=== PATIENT | female | born 1960 | race Caucasian/White ===

== ENCOUNTER → 2020-07-04 10:26 | Outpatient (CLI) | payer BC, SELFPAY ==
--- NOTE | ~2020-07-04 | MM_ITS ---
EXAMINATION: MM screening christine BI w canelo HISTORY: Screening mammogram TECHNIQUE: Craniocaudal and mediolateral oblique 3-D tomosynthesis images were obtained and synthetic 2-D images were generated. CAD analysis was submitted and interpreted. COMPARISON: 04/05/2019, 03/07/2018, 01/19/2017 bilateral digital screening mammogram examinations BREAST PARENCHYMAL COMPOSITION: There are scattered areas of fibroglandular density. FINDINGS: There is no evidence of suspicious mass, calcification, or architectural distortion to sugg est malignancy in either breast. There has been no suspicious interval change. IMPRESSION: 1. No mammographic evidence of malignancy. 2. Recommend routine screening mammography in one year. BI-RADS Category 1: Negative Reviewed, dictated and finalized at location A.
== END ==
PROVIDERS: Visit Provider Obstetrics & Gynecology Gynecology
DX: Z12.31 Encounter for screening mammogram for malignant neoplasm of breast (principal)
CPT/HCPCS: 77063; 77067

== ENCOUNTER 2020-12-17 07:30 | Outpatient (CLI) | payer BC, SELFPAY ==
--- NOTE | 2020-12-17 | EST_ITS ---
Patient Info Name: Brionna Vasquez Age: 60 years : 1960 Gender: Female Ht: 64 in Wt: 145 lbs BSA: 1.73 m2 Heart Rhythm: Bradycardia Exam Date: 12/17/2020 9:08 AM Exam Location: [facility] Stress Patient Status: Outpatient Admit Date: 12/17/2020 Staff Ordering Physician: Iker, Margarito MENEZES Attending Provider: Iker, Margarito MENEZES Exercise Technologist: Danielle Lerner RDCS Exercise Physician: Yakov Og MD Exam Type: CA stress test treadmill Study Info Indications R42 - Dizziness and giddiness A treadmill exercise stress test was performed. Summary 1. Sub maximal treadmill stress EKG study achieving 83% of age predicted maximum heart rate and 11.8 METS and 9:53 on Ronen Protocol. 2. Hypertensive at baseline with hypertensive blood pressure response. 3. Exercise capacity very good at >10 METS. 4. Greater than 1 mm horizontal and upsloping ST segment depression in leads II, III, aVF, V3-V5 at workload achieved suggestive of myocardial ischemia. 5. Occasional stress induced PVCs. 6. Blood pressure management as clinically appropriate. 7. Consider repeat alternative stress test with imaging to improve sensitivity and specificity for myocardial ischemia if clinically indicated. Recommendations * Blood pressure management as clinically appropriate. * Consider repeat alternative stress test with imaging to improve sensitivity and specificity for myocardial ischemia if clinically indicated. Protocol: Ronen Stress ECG Details Stage: REST Duration (min): 8 min : 41 sec Speed (mph): 0.0 Grade (%): 0 HR (bpm): 59 SBP (mmHg): 158 DBP (mmHg): 94 METS: --- Stage: REST Duration (min): 17 min : 52 sec Speed (mph): 0.0 Grade (%): 0 HR (bpm): 70 SBP (mmHg): 158 DBP (mmHg): 94 METS: --- Stage: STAGE 1 Duration (min): 1 min : 0 sec Speed (mph): 1.7 Grade (%): 10 HR (bpm): 82 SBP (mmHg): 158 DBP (mmHg): 94 METS: --- Stage: STAGE 1 Duration (min): 2 min : 0 sec Speed (mph): 1.7 Grade (%): 10 HR (bpm): 90 SBP (mmHg): 158 DBP (mmHg): 94 METS: --- Stage: STAGE 1 Duration (min): 3 min : 0 sec Speed (mph): 1.7 Grade (%): 10 HR (bpm): 91 SBP (mmHg): 176 DBP (mmHg): 90 METS: --- Stage: STAGE 2 Duration (min): 1 min : 0 sec Speed (mph): 2.5 Grade (%): 12 HR (bpm): 99 SBP (mmHg): 176 DBP (mmHg): 90 METS: --- Stage: STAGE 2 Duration (min): 2 min : 0 sec Speed (mph): 2.5 Grade (%): 12 HR (bpm): 106 SBP (mmHg): 200 DBP (mmHg): 92 METS: --- Stage: STAGE 2 Duration (min): 3 min : 0 sec Speed (mph): 2.5 Grade (%): 12 HR (bpm): 108 SBP (mmHg): 200 DBP (mmHg): 92 METS: --- Stage: STAGE 3 Duration (min): 1 min : 0 sec Speed (mph): 3.4 Grade (%): 14 HR (bpm): 117 SBP (mmHg): 210 DBP (mmHg): 93 METS: --- Stage: STAGE 3 Duration (min): 2 min : 0 sec Speed (mph): 3.4 Grade (%): 14 HR (bpm): 122 SBP (mmHg): 210 DBP (mmHg):
--- NOTE | 2020-12-17 | ECHO_ITS ---
Patient Info Name: Brionna Vasquez Age: 60 years : 1960 Gender: Female Ht: 64 in Wt: 145 lbs BSA: 1.73 m2 HR: 57 bpm BP: 169 / 105 mmHg Heart Rhythm: Bradycardia Technical Quality: Good Exam Date: 12/17/2020 8:11 AM Exam Location: [facility] Patient Status: Outpatient Admit Date: 12/17/2020 Staff Ordering Physician: IkerMargarito MD Merchandise Supervisor: Case Taylor, RDCS, RT Attending Provider: IkerMargarito MD Exam Type: CA echo doppler color flow Study Info Indications R42 - Dizziness and giddiness Complete two-dimensional, color flow and Doppler transthoracic echocardiogram is performed. Strain analysis performed. Summary 1. Complete two-dimensional, color flow and Doppler transthoracic echocardiogram is performed. 2. Normal LV size, mild LVH; normal LV systolic and diastolic function, ejection fraction 55-60%. G LS-24%. No significant valvular abnormality. Unable to assess RVSP due to inadequate TR jet velocity. Sinus bradycardia. Left Ventricle Left ventricular chamber dimension is normal. Left ventricular systolic function is normal, estimated at 55-60%. There is mildly increased left ventricular wall thickness. The left ventricular diastolic function is normal. Right Ventricle Right ventricular chamber dimension is normal. Right ventricular systolic function is normal. Left Atria Left atrial chamber dimension is normal. Right Atria Right atrial chamber dimension is normal. Aortic Valve The aortic valve is normal. There is no aortic valve stenosis. Pulmonic Valve The pulmonic valve is normal. Mitral Valve The mitral valve has normal leaflets. There is no mitral valve regurgitation. Tricuspid Valve The tricuspid valve leaflets are normal. There is trace tricuspid valve regurgitation. Pericardium/Pleural The pericardium appears epicardial fat pad. Aorta The prox ascending aorta size is normal. Left Ventricular Outflow Tract Name Value Normal LVOT 2D LVOT Diameter 2.0 cm LVOT Doppler LVOT Peak Gradient 3 mmHg LVOT Mean Gradient 2 mmHg LVOT VTI 20 cm LVOT VTI/AV VTI Ratio 0.7 LVOT Stroke Volume 61 ml LVOT CO 3.6 l/min LVOT CI 2.1 l/min/m2 Mitral Valve Name Value Normal MV Doppler MV Decel Buchanan 248 cm/s2 MV PHT 69 ms MV Area (PHT) 3.2 cm2 4.0-5.0 MV Diastolic Function MV E Peak Velocity 59 cm/s MV A Peak Velocity 56 cm/s MV E/A
== END 2020-12-17 07:31 | disposition home or self-care (01) ==
PROVIDERS: PCP Internal Medicine; Visit Provider Internal Medicine
DX: R55 Syncope and collapse (principal)
CPT/HCPCS: 93017; 93306

== ENCOUNTER → 2021-10-16 10:56 | Outpatient (CLI) | payer BC, SELFPAY ==
--- NOTE | ~2021-10-16 | MM_ITS ---
EXAMINATION: MM screening christine BI w canelo HISTORY: Screening mammogram TECHNIQUE: Craniocaudal and mediolateral oblique 3-D tomosynthesis images were obtained and synthetic 2-D images were generated. CAD analysis was submitted and interpreted. COMPARISON: 07/04/2020, 04/05/2019, 03/07/2018 bilateral screening mammogram examinations BREAST PARENCHYMAL COMPOSITION: There are scattered areas of fibroglandular density. FINDINGS: There is no evidence of suspicious mass, calcification, or architectural distortion to sugg est malignancy in either breast. There has been no suspicious interval change. IMPRESSION: 1. No mammographic evidence of malignancy. 2. Recommend routine screening mammography in one year. BI-RADS Category 1: Negative Reviewed, dictated and finalized at location A. 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
== END ==
PROVIDERS: Visit Provider Obstetrics & Gynecology Gynecology
DX: Z12.31 Encounter for screening mammogram for malignant neoplasm of breast (principal)
CPT/HCPCS: 77063; 77067

== ENCOUNTER → 2022-08-28 12:15 | Outpatient (CLI) | payer BC, SELFPAY ==
--- NOTE | ~2022-08-28 | DEXA_ITS ---
Bone Density Report Name: NGOZI UREÑA V Age: 62 Sex: Female Ethnicity: White Date of : 1960 Indication: postmenopausal; screening for osteoporosis; prior fracture; Referring Provider: RAQUEL GARVIN Study: Bone densitometry was performed. Exam Date: August 28, 2022 Accession number: [id number] Bone Density: Region BMD T-score Z-score Classification AP Spine (L1, L4) 1.022 -0.1 1.4 Normal Femoral Neck (Left) 0.757 -0.8 0.6 Normal Total Hip (Left) 0.901 -0.3 0.7 Normal Femoral Neck (Right) 0.810 -0.4 1.0 Normal Total Hip (Right) 0.893 -0.4 0.7 Normal Total Hip Mean 0.897 -0.4 0.7 Normal World Health Organization criteria for BMD impression classify patients as: Normal (T-score at or above -1.0), Osteopenia (T-score between -1.0 and -2.5), or Osteoporosis (T-score at or below -2.5). 10-year Fracture Risk: FRAX not reported because: All T-scores for Spine Total, Hip Total, Femoral Neck at or above -1.0 Previous Exams: Region Exam Age BMD T-score BMD Change BMD Change Date g/cm2 vs Baseline vs Previous AP Spine(L1, L4) 08/28/2022 62 1.022 -0.1 -0.036* -0.036* 03/07/2018 57 1.059 0.2 Total Hip(Left) 08/28/2022 62 0.901 -0.3 -0.042* -0.042* 03/07/2018 57 0.944 0.0 Total Hip(Right) 08/28/2022 62 0.893 -0.4 -0.072* -0.072* 03/07/2018 57 0.966 0.2 *Denotes significance at 95% confidence level, LSC for AP Spine = 0.022 g/cm2, LSC for Total Hip = 0.027 g/cm2 Clinical Information Provided by Patient: Has had a low trauma fracture Patient maximum height was 64 Menopause Age: 51 Drinks caffeinated beverages Onset of menses at age 10.5 Number of children 1 Impression: The patient has normal bone mass. The patient has risk factors, including: previous fracture. The BMD for the AP Spine(L1, L4) decreased, changing by -0.036 since the last DXA exam. The BMD for the Total Hip(Left) decreased, changing by -0.042 since the last DXA exam. The BMD for the Total Hip(Right) decreased, changing by -0.072 since the last DXA exam. Discussion: BONE DENSITY IS ABOVE THE MINIMUM DESIRABLE LEVEL AT ALL SKELETAL SITES TESTED. This patient?s bone mineral density is above the minimum desirable level (T-score -1.0 or better) at all sites measured. The patient should follow a healthful lifestyle (good nutrition with adequate calcium and vitamin D, and appropriate weight-bearing exercise).
== END ==
PROVIDERS: PCP Internal Medicine; Visit Provider Obstetrics & Gynecology Gynecology
DX: Z78.0 Asymptomatic menopausal state (principal)
CPT/HCPCS: 77080

== ENCOUNTER 2022-10-04 00:51 | Observation (INO) | payer BC, SELFPAY ==
[2022-10-04] VITALS (13 sets, daily range): BP systolic 112–187; BP diastolic 63–98; PULSE 42–69; RESP 16–20; TEMP 36.4–36.7; O2SAT 95–100; BMI 28.9; BMI 28.8
--- NOTE | ~2022-10-04 | CT_ITS ---
EXAMINATION: CT brain wo con DATE: 10/04/2022 01:59 INDICATION: Syncope TECHNIQUE: Computed tomography (CT) of the head was performed without intravenous contrast. Sagittal and coronal reconstructions were performed. The mA was adjusted according to patient size. Iterative reconstruction technique was employed. The dose-length product was 1210.67 mGy-cm. COMPARISON: None FINDINGS: No acute intracranial hemorrhage, acute infarction or abnormal extra axial fluid collection. There is mild scattered white matter hypoattenuation consistent with chronic small vessel ischemic disease. S ymmetric mild increased prominence of the sulci consistent with mild age-appropriate diffuse cerebral volume loss. Ventricles are normal and symmetric. Small calcified extra-axial nodule along the left side of the tentorium which could represent heterotopic dural ossification or a small meningioma. No other abnormal masses identified. The orbits, paranasal sinuses and mastoid air cells are normal. IMPRESSION: 1. No acute intracranial process. 2. Small calcified nodule along the left side of the tentorium which could represent dural heterotopi c ossification or a small meningioma. 3. Age-related changes including mild diffuse volume loss and mild scattered white matter hypoattenua tion consistent with chronic small vessel ischemic disease. Reviewed, dictated and finalized at location A. 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 No acute intracranial process. 2. Small calcified nodule along the left side of the tentorium which could repr esent dural heterotopic ossification or a small meningioma. 3. Age-related changes including mild diffuse volume loss and mild scattered wh ite matter hypoattenuation consistent with chronic small vessel ischemic diseas e.
--- NOTE | ~2022-10-04 | XR_ITS ---
EXAMINATION: XR chest 1V portable DATE: 10/04/2022 03:33 INDICATION: Mid to right-sided chest pain TECHNIQUE: frontal view of the chest was obtained. COMPARISON: None FINDINGS: The lungs are clear with no focal airspace opacities, pulmonary edema, pleural effusion or pneumothor ax. The cardiomediastinal silhouette is normal. Visualized bones and soft tissues are unremarkable. IMPRESSION: 1. No acute cardiopulmonary disease. Reviewed, dictated and finalized at location A. LEY COLLECTOR
--- NOTE | 2022-10-04 01:01 | ECG_ITS ---
Measurements Intervals [place] Rate: 56 P: 55 MI: 210 QRS: 2 QRSD: 90 T: 35 QT: 417 QTc: 402 Interpretive Statements SINUS BRADYCARDIA WITH FIRST DEGREE AV BLOCK MISSING LEAD V1 LOW QRS VOLTAGE IN PRECORDIAL LEADS BASELINE ARTIFACT- I, II, III BORDERLINE ECG NO PREVIOUS ECG AVAILABLE FOR COMPARISON Electronically Signed On 10-04-2022 7:03:03 FACTORY EXPERT by Terry Kessler D.O.
[2022-10-04 01:08] LABS: Basophils Absolute Auto 0.1 K/mm3 (0.0-0.1); Basophils Percent Auto 0.7 % (0.2-1.2); Eosinophils Absolute Auto 0.2 K/mm3 (0-0.3); Eosinophils Percent Auto 2.1 % (0-4.4); Hematocrit 39.7 % (37.0-47.0); Hemoglobin 13.3 g/dL (12.0-15.0); Immature Granulocyte Absolute 0.02 K/mm3 (0.00-0.031); Immature Granulocyte Percent A 0.3 % (0-0.5); Lymphocytes Absolute Auto 3.11 K/mm3 (0.9-3.2); Lymphocytes Percent Auto 40.9 % (18.3-44.2); Mean Corpuscular HGB Conc 33.5 g/dl (32-36); Mean Corpuscular Hemoglobin 30.9 pg (26-34); Mean Corpuscular Volume 92.1 fl (80-100); Mean Platelet Volume 11.2 fl (7.4-10.4); Monocytes Absolute Auto 0.6 K/mm3 (0.1-0.6); Monocytes Percent Auto 7.9 % (2.6-8.5); Neutrophils Absolute Auto 3.7 K/mm3 (1.3-6.7); Neutrophils Percent Auto 48.1 % (45.5-73.1); Platelet Count Result 234 k/mm3 (150-375); Red Blood Count 4.31 M/mm3 (4.2-5.4); Red Cell Distribution Width 12.7 % (11.5-14.5); White Blood Count 7.6 K/mm3 (4.5-10.0)
[2022-10-04 01:18] LABS: Alanine Aminotransferase 38 U/L (6-35); Albumin Level 4.5 g/dL (3.5-5.1); Alkaline Phosphatase 61 U/L (38-126); Anion Gap 9 mmol/L (8-16); Aspartate Amino Transferase 29 U/L (14-36); Bilirubin,Total 0.3 mg/dL (0.2-1.3); Blood Urea Nitrogen 19 mg/dL (7-17); Calcium 9.2 mg/dL (8.4-10.2); Carbon Dioxide 26 mmol/L (22-30); Chloride 105 mmol/L (98-107); Estimated CRCL calculation 55 ml/min; Estimated Glomerular Filt Rate > 60; Glucose 106 mg/dL (65-110); Lipase 166 U/L (23-300); Potassium 3.7 mmol/L (3.4-5.0); Sodium 140 mmol/L (137-145)
[2022-10-04 01:21] LABS: INR 0.9; Prothrombin Time 11.5 Seconds (11.1-14.7)
[2022-10-04 01:22] LABS: Partial Thromboplastin Time 29.3 SECONDS (22.3-36.8)
[2022-10-04 01:30] LABS: Troponin I 0.012 ng/mL (0.000-0.034)
--- NOTE | 2022-10-04 01:50 | ED.GENADULT ---
HPI - General Adult General Chief complaint: Chest Pain Stated complaint: chest pain Time Seen by Provider: 10/04/22 01:14 History of Present Illness HPI narrative: Patient 62-year-old female who presents the emergency department with chief complaint of chest pain. The patient reports much has been having episodes of pain in her chest patient states she seen cardiology and has had multiple tests done the patient states this evening she woke up had an episode of midsternal chest pain and had some twitching in her left middle finger. Patient states that she then had an episode where while she was having pain she became minimally responsive the patient then slowly regained consciousness. The patient denied facial droop but denied focal deficit reports no weakness in her arms or legs denies numbness or tingling after the episode. Related Data Home Medications Medication Instructions Recorded Confirmed atorvastatin 10 mg tablet 11/10/19 Allergies Allergy/AdvReac Type Severity Reaction Status Date / Time Sulfa (Sulfonamide Allergy Unknown Unknown Verified 06/12/20 13:19 Antibiotics) Review of Systems Review of Systems: A 10 system review of systems was completed on the patient and is negative except for what is stated in the HPI. Nursing and ancillary documentation was reviewed. [facility] Past Medical History Medical History Healthy female adult Surgical History Surgical History No history of previous surgery Family History Family History Other Family history of arthritis Family history of malignant neoplasm Hypertension Social History Social History Smoking status: Never smoker Alcohol intake: never Gender identity (if verbalized by the patient): Female Exam Narrative: GENERAL: Well-appearing, well-nourished, and in no acute distress. HEAD: Normocephalic, atraumatic. EYES: PERRLA and EOMI. ENT: Nares clear, no rhinorrhea or epistaxis. Mucous membranes moist. NECK: Supple. CHEST: Clear to auscultation. No respiratory distress. HEART: Regular rate and rhythm. No murmur heard. Normal peripheral pulses. ABDOMEN: Soft, nontender, nondistended, normal active bowel sounds. EXTREMITIES: Normal range of motion. No edema. SKIN: Warm, dry, no rash. NEURO: No focal deficits. Alert and oriented x3. Patient has full range of motion of all extremities no drift sensation is intact in all extremities. GCS 15, NIH stroke scale 0 PSYCH: Normal mood and affect. Course Course Emergency Course: Due to the patient having a change of 0.005 on her repeat troponin Case was discussed with the hospitalist. Given the patient has minimal risk factors and also a officially negative troponin recommended observing the patient and repeating a additional troponin. The repeat troponin increased to 0.027 given this the case was discussed again with the hospitalist who has agreed to admit the patient for observation. Vital Signs Vital signs: Vital Signs Temperature 36.4 C 10/04/22 00:51 Pulse Rate 54 L 10/04/22 00:51 Respiratory Rate 20 10/04/22 00:51 Blood Pressure 187/98 H 10/04/22 00:51 Pulse Oximetry 100 10/04/22 00:51 Oxygen Delivery Room Air 10/04/22 00:51 Temperature 36.4 C 10/04/22 00:51 Pulse Rate 50 L 10/04/22 04:50 Respiratory Rate 16 10/04/22 04:50 Blood Pressure 147/92 H 10/04/22 04:50 Pulse Oximetry 99 10/04/22 04:50 Oxygen Delivery Room Air 10/04/22 00:51 Medical Decision Making Vital Signs Vital Signs: Vital Signs Temperature 36.4 C 10/04/22 00:51 Pulse Rate 54 L 10/04/22 00:51 Respiratory Rate 20 10/04/22 00:51 Blood Pressure 187/98 H 10/04/22 00:51 Pulse Oximetry 100 10/04/22 00:51 Oxygen De
[2022-10-04 01:51] LABS: Appearance Urine Clear (Clear); Bilirubin Urine Negative (Negative); Blood Urine 1+ (Negative); Color Urine Yellow (Yellow); Glucose Urine UA Negative (Negative); Ketones Urine Negative (Negative); Leukocyte Esterase Ur Negative LEU/UL (Negative); Nitrate Urine Negative (Negative); Protein Urine Negative (Negative); Specific Grav Ur 1.015 (1.001-1.035); Urobilinogen Urine 0.2 mg/dL (<2.0)
[2022-10-04 01:55] LABS: Add Urine Microscopic? YES; Bacteria Urine Trace /hpf; Mucus Urine Rare /lpf; Squamous Epithelial Cell Urine Rare /hpf (Few); WBC Urine 0-3 /hpf
[2022-10-04] MEDS: SODIUM CHLORIDE 0.9% IV 1,000 ML 999 ML IV CONT (01:57)
[2022-10-04] MEDS: ONDANSETRON INJ 4 MG/2 ML VIAL IV PUSH (01:57)
[2022-10-04 04:26] LABS: Troponin I 0.017 ng/mL (0.000-0.034)
[2022-10-04 06:25] LABS: Troponin I 0.027 ng/mL (0.000-0.034)
--- NOTE | 2022-10-04 08:26 | ADMGEN ---
This patient, Brionna Vasquez, was admitted to IMU Room 212-01. Patient/family oriented to hospital policies and general routines including ID bracelet, bed and alarms, visiting hours, pain management, procedures, bathroom and other care routines, personal items, smoking policy, room service/diet, and visiting hours. Information on how to activate the Rapid Response Team has been discussed. Patient/Family are encouraged to report perceived risks to care and to ask questions if they do not understand what they are told or what they should do.
[2022-10-04 08:59] LABS: Cholesterol 260 mg/dL (0-200); HDL Direct 47 mg/dL; Triglycerides 167 mg/dL (<150)
[2022-10-04 09:10] LABS: LDL Cholesterol Direct 145 mg/dL
[2022-10-04 10:00] LABS: Hemoglobin A1C 5.7 % (<5.7)
[2022-10-04 11:51] LABS: Troponin I 0.014 ng/mL (0.000-0.034)
[2022-10-04 12:26] LABS: D Dimer 0.38 ug/mL (<0.48)
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
[2022-10-10 04:16] LABS: Lipoprotein A 53 nmol/L (<75)
== END 2022-10-04 13:48 | disposition home or self-care (01) ==
LOC: ANHED 06:35 → ANHIMU 12:45
PROVIDERS: Admitting Provider Internal Medicine; Emergency Provider Emergency Medicine; PCP Internal Medicine; Visit Provider Internal Medicine
DX: R55 Syncope and collapse (principal); R07.9 Chest pain, unspecified; R77.8 Other specified abnormalities of plasma proteins; G93.89 Other specified disorders of brain; R90.82 White matter disease, unspecified; R00.1 Bradycardia, unspecified; I44.30 Unspecified atrioventricular block; Z79.899 Other long term (current) drug therapy; Z82.49 Family history of ischemic heart disease and other diseases of the circulatory system
CPT/HCPCS: 36415; 70450; 71045; 80053; 80061; 81001; 83036; 83690; 83695; 84484; 85025; 85380; 85610; 85730; 93005; 96361; 96374; 99285; G0378; J2405; J7030

== ENCOUNTER → 2023-06-11 09:58 | Outpatient (CLI) | payer BC, SELFPAY ==
--- NOTE | ~2023-06-11 | MM_ITS ---
EXAMINATION: MM screening christine BI w canelo HISTORY: Screening mammogram, family history of breast cancer in her mother. TECHNIQUE: Craniocaudal and mediolateral oblique 3-D tomosynthesis images were obtained and synthetic 2-D images were generated. CAD analysis was submitted and interpreted. COMPARISON: 10/16/2021, 07/04/2020, 04/05/2019 BREAST PARENCHYMAL COMPOSITION: There are scattered areas of fibroglandular density. FINDINGS: No suspicious mass, calcification, or architectural distortion are identified in either claus ast to suggest malignancy. There has been no suspicious interval change. IMPRESSION: 1. No mammographic evidence of malignancy. 2. Recommend routine screening mammography in one year. BI-RADS Category 1: Negative Reviewed, dictated and finalized at location A.
== END ==
PROVIDERS: PCP Internal Medicine; Visit Provider Obstetrics & Gynecology Gynecology
DX: Z12.31 Encounter for screening mammogram for malignant neoplasm of breast (principal)
CPT/HCPCS: 77063; 77067

== ENCOUNTER 2023-07-23 04:32 | Day surgery (SDC) | payer BC, SELFPAY ==
[2023-07-07 11:30] VITALS: BMI 27.6
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
[2023-07-23 08:33] VITALS: BP 152/82; PULSE 59; RESP 20; TEMP 36.3; O2SAT 100
[2023-07-23] MEDS: LACTATED RINGERS 1,000 ML 150 ML IV CONT (08:44)
[2023-07-23 08:46] LABS: Glucose Point of Care 100 mg/dl (65-105)
--- NOTE | 2023-07-23 08:53 | WPDANESEPPF ---
Anes - Initial Pre Proc Eval Procedure: Operation Date: 07/23/23 09:30 Proposed Procedures p Esophagogastroduodenoscopy & Screening Colonoscopy - Dioni Matute MD Date/Time: 07/23/23 08:53 Surgeon: Dioni Matute MD Pre Op Diagnosis: neoplasm screening, chest pain,unspecified Patient Data Age: 63 Gender: F Height: 1.63 m Weight: 71.9 kg Last Vital Signs Temp 97.3 F L 07/23/23 08:33 Pulse 59 L 07/23/23 08:33 Resp 20 07/23/23 08:33 BP 152/82 H 07/23/23 08:33 Pulse Ox 100 07/23/23 08:33 O2 Del Method Room Air 07/23/23 08:33 Allergies Allergy/AdvReac Type Severity Reaction Status Date / Time Sulfa (Sulfonamide Allergy Unknown Unknown Verified 07/23/23 08:32 Antibiotics) Home Medications Medication Instructions Recorded Confirmed Type atorvastatin 10 mg tablet 20 mg PO HS 07/08/23 07/08/23 History calcium 600 mg capsule 600 mg PO DAILY 07/08/23 07/08/23 History cholecalciferol (vitamin D3) 125 125 mcg PO DAILY 07/08/23 07/08/23 History mcg (5,000 unit) tablet (Vitamin D3) coQ10 (ubiquinol) 200 mg capsule 200 mg PO DAILY 07/08/23 07/08/23 History fluoxetine 10 mg tablet 10 mg PO DAILY 07/08/23 07/08/23 History levothyroxine 88 mcg tablet 88 mcg PO DAILY 07/08/23 07/08/23 History (Synthroid) metformin 500 mg tablet,extended 1,000 mg PO DAILY 07/08/23 07/08/23 History release 24 hr vitamin B12 0.5 mg-folic acid 1 mg 1 tablet PO DAILY 07/08/23 07/08/23 History tablet Laboratory Tests 07/23/23 08:38 POC Capillary Glucose 100 mg/dl (65-105) Patient hx anesthesia problems: none Family hx anesthesia problems: none Results Review: All pre-operative results and documents have been reviewed as part of the pre-operative evaluation. [facility] Past Medical History Medical History Healthy female adult Surgical History Surgical History No history of previous surgery Family History Family History Other Family history of arthritis Family history of malignant neoplasm Hypertension Social History Social History Smoking status: Never smoker Alcohol intake: never Substance use type: does not use Lack of Transportation: No Lack of Food: Never True Current Housing: I Have Housing Concerned About Future Housing: No Difficulty Paying Gas/Electric Bills: No Difficulty Paying for Meds: No Currently Unemployed: No Education: Master's Degree or Higher Difficulty w/ Childcare or Family Care: No Living arrangements: with family Gender identity (if verbalized by the patient): Female Spiritual care concerns: No Anes - Eval Final PreProcedure Day of Procedure 07/23/23 08:53 Patient weight: normal Heart: regular rate and rhythm Lungs: clear to auscultation Airway: Mallampati scale class II Neurological: alert and oriented Last oral intake: >/= 8 hours ASA classification: III Emergent: no Anesthetic plan: proceed Anesthesia type and monitoring: general GIVS and standard monitoring Results Review: All pre-operative results and documents have been reviewed as part of the pre-operative evaluation. Informed Consent: The patient's anesthetic plan and its attendant risks and benefits were discussed with the patient/family/POA. Questions were solicited and answers provided to the satisfaction of the patient/family/POA.
[2023-07-23] MEDS: BENZOCAINE (*SP) 60 ML SPRAY CAN (HURRICAINE) 1 SPRAY MUCOUS MEM (09:17)
[2023-07-23] MEDS: SIMETHICONE ORAL SUSPENSION 20 MG/0.3 ML 30 ML BOTTLE 0.6 ML IRRIGATION (09:34)
[2023-07-23 09:43] VITALS: BP 92/60; PULSE 47; RESP 20; O2SAT 96
[2023-07-23 09:53] VITALS: BP 104/65; PULSE 48; RESP 18; O2SAT 97
[2023-07-23 10:03] VITALS: BP 111/76; PULSE 46; RESP 13; O2SAT 99
== END 2023-07-23 10:08 | disposition home or self-care (01) ==
LOC: ANHENDO 04:33 → ANHSURGERY 07:39 → ANHENDO 08-12 09:56
PROVIDERS: PCP Internal Medicine; Visit Provider Internal Medicine Gastroenterology
PROC: 0DJ08ZZ Inspection of Upper Intestinal Tract, Via Natural or Artificial Opening Endoscopic (ICD-10-PCS; CPT 43235; principal; 2023-07-23 09:30)
DX: Z12.11 Encounter for screening for malignant neoplasm of colon (principal); K21.9 Gastro-esophageal reflux disease without esophagitis; Z79.84 Long term (current) use of oral hypoglycemic drugs
CPT/HCPCS: 43239; 45378; 82948; 87081; 88305; A9270; J2704; J7120

== ENCOUNTER 2025-03-10 08:32 | Emergency (ER) | payer BC, SELFPAY ==
[2025-03-10 08:45] VITALS: BP 138/78; PULSE 62; RESP 18; TEMP 36.7; O2SAT 100
--- NOTE | 2025-03-10 08:46 | ED.FEMALEGU ---
HPI - Female Genitourinary General Chief complaint: Urogenital-Female Stated complaint: urinary issue Time Seen by Provider: 03/10/25 08:46 Source: patient, family, RN notes reviewed and old records reviewed Mode of arrival: ambulatory Limitations: no limitations History of Present Illness HPI Narrative: 64 year old female who presents to [facility] care with complaints of having urinary tract infection symptoms which include burning yesterday with urination and today passing urine is more painful with pressure. Patient reports no suprapubic pain or any back pain, denies any fevers, chills or sweats or any nausea. Patient reports no vaginal discharge or any itching. Patient has not taken any AZO or any OTC medications for her symptoms. MD elicited complaint: UTI Onset (ago): day(s) (since yesterday) Location of symptoms: urethra Severity: moderate Severity scale (1-10): 4 Vaginal discharge: none Vaginal bleeding: none Urinary symptoms: Dysuria Treatment prior to arrival: none Related Data Home Medications ?Medication ?Instructions ?Recorded ?Confirmed ?Last Taken ?Type atorvastatin 10 mg tablet 20 mg PO HS 07/08/23 07/08/23 Unknown History calcium 600 mg capsule 600 mg PO DAILY 07/08/23 07/08/23 Unknown History cholecalciferol (vitamin D3) 125 125 mcg PO DAILY 07/08/23 07/08/23 Unknown History mcg (5,000 unit) tablet (Vitamin D3) coQ10 (ubiquinol) 200 mg capsule 200 mg PO DAILY 07/08/23 07/08/23 Unknown History fluoxetine 10 mg tablet 10 mg PO DAILY 07/08/23 07/08/23 Unknown History levothyroxine 88 mcg tablet 88 mcg PO DAILY 07/08/23 07/08/23 Unknown History (Synthroid) metformin 500 mg tablet,extended 1,000 mg PO DAILY 07/08/23 07/08/23 Unknown History release 24 hr vitamin B12 0.5 mg-folic acid 1 mg 1 tablet PO DAILY 07/08/23 07/08/23 Unknown History tablet spironolactone 100 mg tablet mg 03/10/25 Unknown History Allergies Allergy/AdvReac Type Severity Reaction Status Date / Time Penicillins Allergy Mild Other Verified 03/10/25 09:01 Sulfa (Sulfonamide Allergy Unknown Unknown Verified 03/10/25 08:38 Antibiotics) Review of Systems Review of Systems: CONSTITUTIONAL: Denies fever, chills, or sweats. CARDIOVASCULAR: Denies chest pain, palpitations, or edema. RESPIRATORY: Denies cough or dyspnea. GASTROINTESTINAL: Denies abdominal pain, nausea, vomiting, or diarrhea. GENITOURINARY: Reports dysuria, no frequency, urgency. Denies flank pain or hematuria. SKIN: Denies rash or itching. MUSCULOSKELETAL: Denies back pain or myalgia. Denies CVA tenderness NEUROLOGIC: Denies headache All systems reviewed & are unremarkable except as noted in HPI and below PMFSH Past Medical History Medical History Ruptured tendon Hx of migraines Elevated cholesterol Hypothyroidism Surgical History Surgical History No history of previous surgery Family History Family History Other Family history of arthritis Family history of malignant neoplasm Hypertension Social History Social History Smoking status: Never smoker Alcohol intake: never Substance use type: does not use Lack of Transportation: No Lack of Food: Never True Current Housing: I Have Housing Concerned About Future Housing: No Difficulty Paying Gas/Electric Bills: No Difficulty Paying for Meds: No Currently Unemployed: No Education: Master's Degree or Higher Difficulty w/ Childcare or Family Care: No Living arrangements: with family Gender identity (if verbalized by the patient): Female Spiritual care concerns: No Comments At time of signature, agree with nursing past medical, surgical, social and family history. There is no relevant family history pertinent to the presenting complaint Exam Narrative: GENERAL: Well-appearing, well-nourished, and in no acute distress. HEAD: Normocephalic, atraumatic. NECK: Supple.no lymphadenopathy CHEST: Clear to auscultation. No respiratory distress. SAO2 100% on room air HEART: Regular rate and rhythm. No murmur heard. Normal peripheral pulses. ABDOMEN: Soft, nontender, nondistended, normal active bowel sounds. No CVA tenderness, reports painful urination with pressure EXTREMITIES: Normal range of motion. No edema. SKIN: Warm, dry, no rash. NEURO: No focal deficits. Alert and oriented x3. Course Course Emergency Course: Patient is aware of diagnosis, understands and agrees to treatment plan.? Anticipatory guidance given.? Patient agrees to follow-up as directed and is aware of reasons to seek care at the emergency department. Portions of this record may have been created with voice recognition software Level of Care: Express Care Visit Vital Signs Vital signs: Vital Signs Temperature 36.7 C 03/10/25 08:45 Pulse Rate 62 03/10/25 08:45 Respiratory Rate 18 03/10/25 08:45 Blood Pressure 138/78 03/10/25 08:45 Pulse Oximetry 100 03/10/25 08:45 Oxygen Delivery Room Air 03/10/25 08:45 Temperature 36.7 C 03/10/25 08:45 Pulse Rate 62 03/10/25 08:45 Respiratory Rate 18 03/10/25 08:45 Blood Pressure 138/78 03/10/25 08:45 Pulse Oximetry 100 03/10/25 08:45 Oxygen Delivery Room Air 03/10/25 08:45 reviewed MDM - Female Genitourinary MDM Narrative Medical decision making narrative: Exam findings and UA show no acute concerns or changes; patient is non-toxic appearing and is in no distress.? Patient is appropriate for outpatient treatment and follow-up. Differential Diagnosis Differential diagnosis: Likely urinary tract infection, cystitis and other (dysuria) Medical Records Attestation: I reviewed the patient's medical records. Lab Data Attestation: I reviewed the patient's lab results. Lab results narrative: Urine dip glucose negative, bilirubin negative, ketone negative specific gravity 1.025, blood 3+, pH 6.0, protein 2+ urobilinogen 0.2 nitrate negative leukocyte 2+, urine cloudy Critical Care Time Critical Care Time Critical Care Time: No Discharge Plan Discharge Clinical Impression: UTI (urinary tract infection) Qualifiers: Urinary tract infection type: site unspecified Hematuria presence: with hematuria Qualified Code(s): N39.0 - Urinary tract infection, site not specified Patient Disposition: Home Condition: Stable Instructions: Antibiotic Form, Urinary Tract Infection in Women (ED) Additional Instructions: Increase fluids especially cranberry juice and water Avoid caffeine and carbonated beverages Antibiotic as directed Medicine as directed--cautioned it will cause your urine to be bright orange Tylenol/ibuprofen for pain or fever Follow-up with her primary care provider if further problems or concerns Recheck if you have fever over 101, nausea and vomiting. If your symptoms persist, change or worsen significantly before you can contact your personal physician then please, without delay, go to the emergency department for further evaluation. Follow-up with PCP in 7-10 days or sooner if needed Follow up with PCP soon in regards to your blood pressure which is elevated above threshold for referral. Blood pressure above 120/80 may indicate pre-hypertension. 138/78 Patient Language: Japanese Prescriptions: New nitrofurantoin monohyd/m-cryst [Macrobid] 100 mg capsule 100 mg PO Q12H 7 Days Qty: 14 0RF Rx Instructions: must administer with a meal/food phenazopyridine [Pyridium] 200 mg tablet 200 mg PO TID PRN (Reason: pain) Qty: 6 0RF No Action spironolactone 100 mg tablet fluoxetine 10 mg tablet 10 mg PO DAILY metformin 500 mg tablet extended release 24 hr 1,000 mg PO DAILY atorvastatin 10 mg tablet 20 mg PO HS calcium 600 mg Capsule 600 mg PO DAILY levothyroxine [Synthroid] 88 mcg tablet 88 mcg PO DAILY vitamin Q48-qtdya acid 0.5-1 mg Tablet 1 tablet PO DAILY cholecalciferol (vitamin D3) [Vitamin D3] 125 mcg (5,000 unit) Tablet 125 mcg PO DAILY coQ10 (ubiquinol) 200 mg Capsule 200 mg PO DAILY Follow-up/Referrals: DAMARI,ROSEMARIE MARTÍNEZ [Primary Care Provider] - Time of Disposition: 09:02 Quality Kristina Coma Scale Eyes: Open Verbal: Oriented and Alert Motor: Follows Commands Kristina Coma Total Score: 15
[2025-03-10 08:58] LABS: EDUAAPPEAR Cloudy; EDUABILI Negative (Negative); EDUABLOOD 3+ (Negative); EDUACOLOR1 Yellow; EDUAGLUCOSE Negative (Negative); EDUAKETONE Negative (Negative); EDUALEUKO 2+ (Negative); EDUANITRATE Negative (Negative); EDUAPROTEIN 2+ (Negative); EDUASPGRAVITY 1.025; EDUAUROBILI 0.2
== END 2025-03-10 09:10 | disposition home or self-care (01) ==
PROVIDERS: Emergency Provider Registered Nurse; PCP Nurse Practitioner Family
DX: N39.0 Urinary tract infection, site not specified (principal); E78.00 Pure hypercholesterolemia, unspecified; E03.9 Hypothyroidism, unspecified
CPT/HCPCS: 81003; 87086; 87186; 99213; G0463

== ENCOUNTER 2025-08-29 12:50 | Outpatient (CLI) | payer BC, SELFPAY ==
--- NOTE | ~2025-08-29 | MM_ITS ---
EXAMINATION: MM screening christine BI w canelo HISTORY: Screening TECHNIQUE: Craniocaudal and mediolateral oblique 3-D tomosynthesis images were obtained and synthetic 2-D images were generated. CAD analysis was submitted and interpreted. COMPARISON: 10/16/2021 BREAST PARENCHYMAL COMPOSITION: There are scattered areas of fibroglandular density. FINDINGS: There is no evidence of suspicious mass, calcification, or architectural distortion to suggest malignancy. Focal asymmetry in the upper outer quadrant of the left breast, middle depth. IMPRESSION: 1. Focal asymmetry in the upper-outer quadrant of the left breast, middle depth. The study is incomplete. A diagnostic mammogram and a diagnostic ultrasound are recommended. BI-RADS 0: Incomplete-Need additional imaging evaluation. Reviewed, dictated and finalized at location Q. IMPRESSION: 1. Focal asymmetry in the upper-outer quadrant of the left breast, middle depth . The study is incomplete. A diagnostic mammogram and a diagnostic ultrasound a re recommended. BI-RADS 0: Incomplete-Need additional imaging evaluation.
--- OUTSIDE RECORDS SUMMARY | 2025-08-29 14:34 | XMS_ITS | Clinical Summary ---
Author Organization [facility] Address [address] [address] Care Team Providers Care Java Engineer Name Role Phone Margarito Dong MD Primary Care Provider [phone] Source Comments [facility],non-owned Affiliates and Associated Physician Practices is amultiple site organization consisting of ambulatory clinics and hospital sitesin [place], [place], [place] and [place]. This disclosure is being madepursuant to the Care Everywhere program and may not contain all information available regarding this patient. Last updated 18.[facility] Allergies No known active allergies Medications * Be aware that medications may not be up to date on this document. Alwaysverify current medications with the patient. levothyroxine (SYNTHROID) 50 MCG tablet Take 50 mcg by mouth daily before breakfast Active SIMVASTATIN PO Activ e Social History Tobacco Use Types Packs/Day Years Used Date Smoking Tobacco: Never Comments Unknown Sex and Gender Information Value Date Recorded Sex Assigned at Not on file Legal Sex Female 11:48 AM APPLIQUE CUTTER Gender Identity Not on file Sexual Orientation Not on file Last Filed Vital Signs Vital Sign Reading Time Taken Comments Blood Pressure 128/86 10/05/2016 6:47 PM APPLIQUE CUTTER Pulse 60 10/05/2016 6:47 PM APPLIQUE CUTTER Temperature 37.1 C (98.7 F) 10/05/2016 6:47 PM APPLIQUE CUTTER Respiratory Rate 16 10/05/2016 6:47 PM APPLIQUE CUTTER Oxygen Saturation 98% 10/05/2016 6:47 PM APPLIQUE CUTTER Inhaled Oxygen Concentration - - Weight 70.3 kg (155 lb) 10/05/2016 6:47 PM APPLIQUE CUTTER Height 162.6 cm (5' 4) 10/05/2016 6:47 PM APPLIQUE CUTTER Body Mass Index 26.61 10/05/2016 6:47 PM APPLIQUE CUTTER Plan of Treatment Health Maintenance Due Date Last Done Comments BONE DENSITY TESTING 1960 COLOGUARD (AGES 45-75) - COL ON CA SCREENING 1960 COLON MONITORING 1960 COLONOSCOPY - COLON CA SCREENING 1960 CT COLONOGRAPHY - COLON CA SCREENING 1960 Colorectal Cancer Screening 1960 FIT - COLON CA SCREENING 1960 FLEX SIG - COLON CA SCREENING 1960 MAMMOGRAM 1960 HIV SCREENING 1975 HEPATITIS C SCREENING 03/23/1978 DTAP/TDAP/TD VACCINES (1 - Tdap) 1979 PAP SMEAR 1981 PNEUMOCOCCAL VACCINE 50+ (1 of 1 - PCV) 2010 ZOSTER VACCINE (1 of 2) 2010 DEPRESSION SCREENING 11/15/2024 COVID-19 VACCINE (1 - 2023-2 5 season) 2025 INFLUENZA VACCINE (#1) 2025 Respiratory Syncytial Virus (RSV) Vaccine Pt: or over 60 yrs (1 - 1-dose 75+ series) 2035 HEPATITIS B VACCINE Aged Out No longe r eligible based on patient's age to complete this topic HIB VACCINE Aged Out No longer eligi ble based on patient's age to complete this topic HPV VACCINE Aged Out No longer eligi ble based on patient's age to complete this topic MENINGOCOCCAL (Group B) VACC INE SHARED DECISION-MAKING Aged Out No longer eligibl e based on patient's age to complete this topic MENINGOCOCCAL GROUPS A/C/Y/W VACCINE Aged Out No longer eligible b ased on patient's age to complete this topic Insurance PAIGE ANTHEM ANTHEM Care Teams Java Engineer Relationship Specialty Start Date End Date Margarito Dong MD PCP - General 01/24/19
--- OUTSIDE RECORDS SUMMARY | 2025-08-29 14:34 | XMS_ITS | Clinical Summary ---
Author Organization [facility] Virtual Care Address [address] [place] [id number] Phone Care Team Providers Care Supervisor Cigar Making Machine Name Role Phone Margarito Dong MD Primary Care Provider [phone] Margarito Dong MD Unavailable [phone] Nancy Vu MD Unavailable [phone] Allergies Active Allergy Reactions Criticality Noted Date Comments Iodinated Contrast Media Rash Medium 04/16/2020 Penicillins Other (See comments) Low 11/30/2023 Sulfa (Sulfonamide Antibiotics) Rash,Other (See comments) Medium 04/16/2020 Medications [id number]-[id number]-epa -dpa-fish oil 1,050-1,200 mg capsule Take 1 capsule by mouth daily Active Synthroid 88 mcg tablet Take 1 tablet (88 mcg total) by mouth senior mechanical project manager before breakfast 3 Active clotrimazole-be tamethasone (LOTRISONE) cream APPLY TO THE AFFECTED AREA THREE TIMES DAILY Active spironolactone (ALDACTONE) 100 mg tablet Take 1 tablet (100 mg total) by mouth daily 90 tablet 2 4 Active Additional Information Patient taking differently:100 mg oral2 times daily, Reported on 06/02/2024 buPROPion (WELLBUTRIN) 100 mg tablet Take 1 tablet (100 mg total) by mouth 2 (two) times a day 60 tablet 11 4 Active ketoconazole (NIZORAL) 2 % shampoo 4 Active semaglutide 0.25 mg or 0.5 mg (2 mg/3 mL) pen injector injection Inject 0.5 mg under the skin every 7 days 3 mL 4 Active metFORMIN XR (GLUCOPHAGE XR) 500 mg 24 hr tablet TAKE 2 TABLETS DAILY WITH BREAKFAST 180 tablet 5 Active atorvastatin (LIPITOR) 20 mg tablet TAKE 1 TABLET DAILY 90 tablet 5 Active Active Problems Problem Noted Date Diagnosed Date Insulin resistance 11/30/2023 Assessment & Plan (06/02/2024 10:16 AM CDT): Chronic problem. Currently taking metformin XR 1000mg daily. Will trial Ozempic/Wegovy to see if any help in weight loss. Sample given today. Discussed 0.25mg weekly x 4 then increase to 0.5mg weekly (or can stay at the 0.25mg weekly dose). Reviewed SE. To call/stop if any abd pain or N/V that does not resolve quickly. Discussed intake/activity/exercise. Importance of diet and exercise as cornerstone of treatment of this condition was discussed at length. 45-60 min daily aerobic / resistance exercise [id number] berna diet Assessment & Plan (11/30/2023 1:16 PM SHOT LIGHTER): Diet and exercise was emphasized Restart metformin XR a 1000 mg day Overweight (BMI 25.0-29.9) 11/30/2023 Assessment & Plan (11/30/2023 1:16 PM SHOT LIGHTER): Diet and exercise Will start bupropion, to help with cravings. Acquired hypothyroidism 07/27/2023 Assessment & Plan (06/02/2024 10:17 AM CDT): Chronic problem. Clinically and biochemically euthyroid on current Synthroid 88mcg 6 days weekly. Reviewed labs from [facility] 05/13/24 (see scanned media). Aware to take 1st thing in morning, 30-60 minutes before food/drink/other medications. Assessment & Plan (11/30/2023 1:15 PM SHOT LIGHTER): Chronic, well-controlled Continue Synthroid 88 mcg 6 days a week Update TFTs, and adjust dose of Synthroid, if indicated Assessment & Plan (07/27/2023 4:24 PM CDT): It was explained to the patient that the goal of treatment is to normalize TSH Will recheck TFTs today and will make adjustment to the levothyroxine if indicated Hyperandrogenism 07/27/2023 Assessment & Plan (11/30/2023 1:15 PM SHOT LIGHTER): Increase spironolactone to 100 mg daily Assessment & Plan (07/27/2023 4:24 PM CDT): Probably related to PCOS-insulin resistance I will recheck free and total testosterone as well as DHEA-S Might consider scanning her adrenal glands Will get records from her booking police officer Abnormal stress test 01/02/2021 Hand pain 04/16/2020 Hyperlipidemia 04/16/2020 Assessment & Plan (07/27/2023 4:25 PM CDT): With a very strong family history of her disease LDL goal probably should be under 70 Will check lipid profile, lipoprotein and CRP Vitamin D deficiency 07/06/2017 Surgical History Surgery Date Site/Laterality Comments SECTION Medical History Medical History Date Comments Hx Other Medical hypothyroidism; Comments: [facility] 03/06/2015 - Hx Other Medical hypothyroisism; Comments: [facility] 03/06/2015 - Hx Other Medical hypercholestero lemia; Comments: [facility] 03/06/2015 - ADHD (attention deficit hype ractivity disorder) Migraines Heart valve problem Hyperlipidemia Thyroid disease Anxiety Hot flashes Hypothyroidism Weight gain Family History Medical History Relation Name Comments Seizures Brother Heart attack Father Heart disease Father Heart disease; Cause of : Heart disease Arthritis Mother Blood Clot Mother blood clots; Cancer Mother Heart disease Mother Heart disease; Hypertension Mother Hypertension; Other Mother breast tumor; Other Other Family history of high cholesterol; Arthritis Sister Hypothyroidism Sister Hypothyroidis m; Relation Name Status Comments Brother Father (Age 48) Mother Alive Other Sister Social History Tobacco Use Types Packs/Day Years Used Date Smoking Tobacco: Never Smokeless Tobacco: Never Tobacco Cessation:Counseling Given: Not Answered Alcohol Use Standard Drinks/Week Comments Yes 0 (1 standard drink = 0.6 oz pur e alcohol) social Comments No Sex and Gender Information Value Date Recorded Sex Assigned at Not on file Legal Sex Female 3:35 AM SHOT LIGHTER Gender Identity Not on file Sexual Orientation Not on file Obstetrics History Last Filed Vital Signs Vital Sign Reading Time Taken Comments Blood Pressure 116/78 06/02/2024 9:33 AM CDT Pulse 65 06/02/2024 9:33 AM CDT Temperature - - Respiratory Rate 16 06/02/2024 9:33 AM CDT Oxygen Saturation 98% 12/17/2022 9:14 AM SHOT LIGHTER Inhaled Oxygen Concentration - - Weight 76.2 kg (168 lb) 06/02/2024 9:33 AM CDT Height 162.6 cm (5' 4.02) 06/02/2024 9:33 AM CD T Body Mass Index 28.82 06/02/2024 9:33 AM CDT Plan of Treatment Health Maintenance Due Date Last Done Comments Colon Cancer Screening-Colonoscopy 1960 Depression Screening 1960 Fall Risk Assessment 1960 Hepatitis C Screening 1960 DTaP/Tdap/Td Vaccine (1 - Tdap) 1971 Hepatitis B Screening 1978 Pneumococcal vaccine 65+ (1 of 1 - PCV) 2010 Zoster Vaccine (1 of 2) 2010 Cervical Cancer Screening 01/04/2024 01/04/2023 Breast Cancer Screening-Mammogram 06/11/2024 023 Osteoporosis Screening-Bone Density Scan 08/28/2024 08/28/2022 Well Visit 65+ 2025 Covid-19 Vaccine ( season) 2025, 04/05/2021 Influenza Vaccine (#1) 2025 Procedures Procedure Name Priority Date/Time Associated Diagnosis Comments IMAGING PAP AND HPV MRNA E6/E7 Routine 01/04/2023 12:49 PM SHOT LIGHTER from Last 3 Months or Most Recently Relevant to Health Maintenance Results * Imaging Pap and HPV mRNA E6/E7 (01/04/2023 12:49 PM SHOT LIGHTER) Report status CANCELED [facility] Comment:Result canceled by t he ancillary. CLINICAL INFORMATION: [facility] Comment:None given LMP [facility] Comment:P-MARTY Previous Pap [facility] Comment:NEW PT Prev. Bx [facility] Comment:NONE GIVEN SOURCE: [facility] Comment:Vagina, Cervix Pap, specimen adequacy [facility] Comment: Satisfactory for evaluation. Endocervical/transformation zone component present. Pap, general categorization CANCELED [facility] Comment:Result canceled by t he ancillary. HPV interp [facility] Comment:Negative for intraep ithelial lesion or malignancy. Infection: CANCELED [facility] Comment:Result canceled by t he ancillary. COMMENTS [facility] Comment: This Pap test has been evaluated with computer assisted technology. Assistant Director Of Plant Operations [facility] Comment: [place], CT(ASCP) CT Screening location: [address] [place] [address] Dr. Horn, [place] [address] Review wildlife and game protector CANCELED [facility] Comment:Result canceled by t he ancillary. Pathologist CANCELED [facility] Comment:Result canceled by t he ancillary. Comment [facility] Comment: EXPLANATORY NOTE: The Pap is a screening test for cervical cancer. It is not a diagnostic test and is subject to false negative and false positive results. It is most reliable when a satisfactory sample, regularly obtained, is submitted with relevant clinical findings and history, and when the Pap result is evaluated along with historic and current clinical information. Human papillomavirus RNA, High Risk E6/E7 Not Detected Not Detected [facility] Comment: Methodology: Script Manager-Mediated Amplification This assay detects E6/E7 viral messenger RNA (mRNA) from 14 high-risk HPV types (16,18,31,33,35,39,45,51,52,56,58,59,66,68). Cervical sources are required for HPV testing. If a vaginal source from a patient who has had a total hysterectomy with removal of cervix was submitted, please contact the testing laboratory for alternative testing options. For additional information, please refer to http://education.[employer]/faq/TDJ591c0 (This link if provided for information/ educational purposes only.) 01/04/2023 12:4 9 PM SHOT LIGHTER 01/04/2023 11:13 PM SHOT LIGHTER Narrative [facility] - 01/07/2023 8:13 AM SHOT LIGHTER Patient Report History copied from and originally reported to client [id number] in site (STL) us Nancy Vu MD LAB PATHOLOGY ORDERABLES Fin al Result [facility] [address] [place] [address] [facility] [address] [place] [address] from Last 3 Months or Most Recently Relevant to Health Maintenance Insurance [place] [employer] [place] Care Teams Supervisor Cigar Making Machine Relationship Specialty Start Date End Date Margarito Dong MD PCP - General Internal Medicine 06/17/23 Margarito Dong MD Internal Medicine 06/17/23 Nancy Vu MD Consulting Physician Obstetrics and Gynecology 07/27/23
--- OUTSIDE RECORDS SUMMARY | 2025-08-29 14:35 | XMS_ITS | Data Portability ---
Author Organization [place] [facility], Main Office Address [address] [place] [address] Care Team Providers Care Stockroom Associate Name Role Phone ESTHER DONG Primary Care Provider ESTHER DONG Referring Provider Assessment Encounter Date Assessment Date Assessment LastModified by Organization Details LastModified Time 08/03/2023 08/03/2023 Will continue current therapy follow-up in 6 months [id number] Not available 08/08/2023 21:28:20 Plan of Treatment Reminders Order Date Submit Date Provider Last Modified By Organization Details Last Modified Time Details Appointments None recorded. Lab None recorded. Referral None recorded. Procedures None recorded. Surgeries None recorded. Imaging None recorded. Medication Orders Zoloft 25 mg tablet 2022 023 [id number] [facility], [address] [place] [address], [address], 3 21:28:00 atorvastati n 20 mg tablet 2022 023 [id number] [facility], [address] [place] [address], [address], 3 15:26:49 Patient TargetsNo targets recorded. Patient InstructionsNo instructions recorded. Reason for Referral None Reported. Results Created Date Observation Date Name Description Value Unit Range Abnormal Flag Note LastModifiedBy Organization Detail LastModifiedTime 03/20/20 22 04/01/2022 TESTO STERO NE, FREE+ TOTAL LC/MS testosterone , total, lc/MS 50.7 NG/dL 7.0-40 .0 high Not Available [facility] (Lab) [address] [place], [address], 04/01/2022 11:15:08 03/20/20 22 04/01/2022 TESTO STERO NE, FREE+ TOTAL LC/MS testosterone , free 1.32 NG/dL 0.10-0 .85 high Not Available [facility] (Lab) [address] [place], [address], 04/01/2022 11:15:08 03/20/20 22 04/01/2022 TESTO STERO NE, FREE+ TOTAL LC/MS % free testosterone 2.61 % 0.50-2 .80 Perfo rmed at: - [facility] jarvis [address] [place] [address] [place] [address] Lab Direc tor: Sonia lim MD, Phone : [phone] Not Available [facility] (Lab) [address] [place], [address], 04/01/2022 11:15:08 03/20/20 22 03/21/2022 INSUL IN insulin 16.9 uIU/m L 2.6-24 .9 Perfo rmed at: - [facility] [place] [id number] Lab Direc tor: Ashish hernandez PhD, Phone : [phone] Not Available [facility] (Lab) [address] [place], [address], 03/21/2022 14:12:21 03/20/20 22 03/20/2022 VITAM IN D 25-HY DROXY [id number] 58.2 NG/mL 30-100 Vitam in D Statu s: Defic ient: <20 ng/mL Insuf ficie nt: 20-29 ng/mL Suffi cient : 30-10 0 ng/mL Not Available [facility] (Lab) [address] [place], [address], 03/20/2022 15:07:26 03/20/20 22 03/20/2022 CORTI JANETT, TOTAL charly 13.2 ug/dL CORTI JANETT RESUL T COMME NT: Refer ence Range : Befor e 10 a.m. Speci men: 4.5-2 2.7 Refer ence Range : After 5 p.m. Speci men: 1.7-[address] inter pret above resul ts accor dingl y Not Available [facility] (Lab) [address] [place], [address], 03/20/2022 14:42:49 03/20/20 22 03/20/2022 TSH thyroid-stim ulating hormone 3.750 uIU/m L 0.465- 4.680 Not Available [facility] (Lab) [address] [place], [address], 03/20/2022 14:42:48 03/20/20 22 03/20/2022 COMPR EHENS SUSAN METAB OLIC PANEL sodium 136 mmol/ L 137-14 5 low Not Available [facility] (Lab) [address] [place], [address], 03/20/2022 14:41:29 03/20/20 22 03/20/2022 COMPR EHENS SUSAN METAB OLIC PANEL potassium 3.9 mmol/ L 3.5-5. 1 Not Available [facility] (Lab) [address] [place], [address], 03/20/2022 14:41:29 03/20/20 22 03/20/2022 COMPR EHENS SUSAN METAB OLIC PANEL chloride 104 mmol/ L 98-107 Not Available [facility] (Lab) [address] [place], [address], 03/20/2022 14:41:29 03/20/20 22 03/20/2022 COMPR EHENS SUSAN METAB OLIC PANEL carbon dioxide 26 mmol/ L 22-30 Not Available [facility] (Lab) [address] [place], [address], 03/20/2022 14:41:29 03/20/20 22 03/20/2022 COMPR EHENS SUSAN METAB OLIC PANEL anion gap 9.9 mmol/ L 14-22 low Not Available [facility] (Lab) [address] [place], [address], 03/20/2022 14:41:29 03/20/20 22 03/20/2022 COMPR EHENS SUSAN METAB OLIC PANEL glucose 114 mg/dL 70-99 high Not Available [facility] (Lab) [address] [place], [address], 03/20/2022 14:41:29 03/20/20 22 03/20/2022 COMPR EHENS SUSAN METAB OLIC PANEL BUN 22 mg/dL 8-19 high Not Available [facility] (Lab) [address] [place], [address], 03/20/2022 14:41:29 03/20/20 22 03/20/2022 COMPR EHENS SUSAN METAB OLIC PANEL creatinine 0.86 mg/dL 0.66-1 .25 Not Available [facility] (Lab) [address] [place], [address], 03/20/2022 14:41:29 03/20/20 22 03/20/2022 COMPR EHENS SUSAN METAB OLIC PANEL calcium 9.5 mg/dL 8.4-10 .2 Not Available [facility] (Lab) [address] [place], [address], 03/20/2022 14:41:29 03/20/20 22 03/20/2022 COMPR EHENS SUSAN METAB OLIC PANEL GFR >60 Refer ence Range : [place] GFR Healt hy Adult : >60 mL/mi n/1.7 3 m2 Chron ic Kidne y Disea se: 15-60 mL/mi n/1.7 3 m2 Kidne y Failu re: <15/m L/min /1.73 m2 www.n iddk. nih.g ov The MDRD study equat ion has not been valid ated in child anushka <18 years of age; pregn ant women ; the elder ly >85 years of age; or in some racia l or ethni c subgr oups, such as Hispa nics. Outsi de the valid ated monty eters , estim ated GFR is less accur ate, requi ring clini berna judgm ent on a case- by-ca se basis . Clini berna inter preta tion for other races and ages must be made by the clini ozzie. The MDRD study equat ion has not been valid ated for the evalu ation of serum creat inine relat ed to nutri sandra l statu s or medic ation usage . For perso ns <18 years of age, a pedia tric GFR calcu lator is avail able on the [facility] websi te: https ://rubens w.juan manuel meier.o rg/pr ofess ional s/kdo qi/gf r_cal culat or Not Available [facility] (Lab) [address] [place], [address], 03/20/2022 14:41:29 03/20/20 22 03/20/2022 COMPR EHENS SUSAN METAB OLIC PANEL alkaline phosphatase 60 U/L 38-126 Not Available [facility] (Lab) [address] [place], [address], 03/20/2022 14:41:29 03/20/20 22 03/20/2022 COMPR EHENS SUSAN METAB OLIC PANEL alanine aminotransfe rase 47 U/L 0-35 high Not Available [facility] (Lab) [address] [place], [address], 03/20/2022 14:41:29 03/20/20 22 03/20/2022 COMPR EHENS SUSAN METAB OLIC PANEL aspartate aminotransfe rase 37 U/L 15-37 Not Available [facility] (Lab) [address] [place], [address], 03/20/2022 14:41:29 03/20/20 22 03/20/2022 COMPR EHENS SUSAN METAB OLIC PANEL bilirubin, total 0.40 mg/dL 0.20-1 .30 Not Available [facility] (Lab) [address] [place], [address], 03/20/2022 14:41:29 03/20/20 22 03/20/2022 COMPR EHENS SUSAN METAB OLIC PANEL total protein 7.0 g/dL 6.3-8. 2 Not Available [facility] (Lab) [address] [place], [address], 03/20/2022 14:41:29 03/20/20 22 03/20/2022 COMPR EHENS SUSAN METAB OLIC PANEL albumin 4.4 g/dL 3.4-5. 0 Not Available [facility] (Lab) [address] [place], [address], 03/20/2022 14:41:29 03/20/20 22 03/20/2022 COMPR EHENS SUSAN METAB OLIC PANEL globulin 2.6 g/dL 2.6-4. 2 Not Available [facility] (Lab) [address] [place], [address], 03/20/2022 14:41:29 03/20/20 22 03/20/2022 COMPR EHENS SUSAN METAB OLIC PANEL A/G ratio 1.7 ratio 1.0-2. 0 Not Available [facility] (Lab) [address] [place], [address], 03/20/2022 14:41:29 03/20/20 22 03/20/2022 MAGNE SIUM magnesium 2.1 mg/dL 1.6-2. 3 Not Available [facility] (Lab) [address] [place], [address], 03/20/2022 14:41:23 03/20/20 22 03/20/2022 T4 FREE free T4 0.83 NG/dL 0.78-2 .19 Not Available [facility] (Lab) [address] [place], [address], 03/20/2022 14:15:16 03/20/20 22 03/20/2022 T3 FREE free T3 3.1 pg/mL 2.77-5 .27 Not Available [facility] (Lab) [address] [place], [address], 03/20/2022 14:15:13 03/20/20 22 03/20/2022 CBC/C OMPLE TE BLD COUNT W/DIF F hematocrit 42.9 % 35.7-4 5.7 Not Available [facility] (Lab) [address] [place], [address], 03/20/2022 13:49:20 03/20/20 22 03/20/2022 CBC/C OMPLE TE BLD COUNT W/DIF F white blood cells 6.7 x10'3 /uL 4.2-10 .8 Not Available [facility] (Lab) [address] [place], [address], 03/20/2022 13:49:20 03/20/20 22 03/20/2022 CBC/C OMPLE TE BLD COUNT W/DIF F red blood cells 4.70 x10'6 /uL 3.80-5 .20 Not Available [facility] (Lab) [address] [place], [address], 03/20/2022 13:49:20 03/20/20 22 03/20/2022 CBC/C OMPLE TE BLD COUNT W/DIF F hemoglobin 14.4 g/dL 12.0-1 5.6 Not Available [facility] (Lab) [address] [place], [address], 03/20/2022 13:49:20 03/20/20 22 03/20/2022 CBC/C OMPLE TE BLD COUNT W/DIF F mean red cell volume 91.3 fL 82.0-9 9.0 Not Available [facility] (Lab) [address] [place], [address], 03/20/2022 13:49:20 03/20/20 22 03/20/2022 CBC/C OMPLE TE BLD COUNT W/DIF F mean red cell hemoglobin 30.6 pg 27.0-3 3.0 Not Available [facility] (Lab) [address] [place], [address], 03/20/2022 13:49:20 03/20/20 22 03/20/2022 CBC/C OMPLE TE BLD COUNT W/DIF F mean RBC HGB concentratio n 33.6 g/dL 31.0-3 6.0 Not Available [facility] (Lab) [address] [place], [address], 03/20/2022 13:49:20 03/20/20 22 03/20/2022 CBC/C OMPLE TE BLD COUNT W/DIF F red cell distribution width 12.6 % 11.8-1 5.5 Not Available [facility] (Lab) [address] [place], [address], 03/20/2022 13:49:20 03/20/20 22 03/20/2022 CBC/C OMPLE TE BLD COUNT W/DIF F platelets 267 x10'3 /uL 150-40 0 Not Available [facility] (Lab) [address] [place], [address], 03/20/2022 13:49:20 03/20/20 22 03/20/2022 CBC/C OMPLE TE BLD COUNT W/DIF F mean platelet volume 11.9 fL 9.0-12 .4 Not Available [facility] (Lab) [address] [place], [address], 03/20/2022 13:49:20 03/20/20 22 03/20/2022 CBC/C OMPLE TE BLD COUNT W/DIF F neutrophils 50.5 % 39.0-7 2.0 Not Available [facility] (Lab) [address] [place], [address], 03/20/2022 13:49:20 03/20/20 22 03/20/2022 CBC/C OMPLE TE BLD COUNT W/DIF F lymphocytes 39.9 % 16.0-4 7.0 Not Available [facility] (Lab) [address] [place], [address], 03/20/2022 13:49:20 03/20/20 22 03/20/2022 CBC/C OMPLE TE BLD COUNT W/DIF F monocytes 6.9 % 5.0-12 .0 Not Available [facility] (Lab) [address] [place], [address], 03/20/2022 13:49:20 03/20/20 22 03/20/2022 CBC/C OMPLE TE BLD COUNT W/DIF F eosinophils 1.8 % 1.0-7. 0 Not Available [facility] (Lab) [address] [place], [address], 03/20/2022 13:49:20 03/20/20 22 03/20/2022 CBC/C OMPLE TE BLD COUNT W/DIF F basophils 0.6 % 0.0-2. 0 Not Available [facility] (Lab) [address] [place], [address], 03/20/2022 13:49:20 03/20/20 22 03/20/2022 CBC/C OMPLE TE BLD COUNT W/DIF F immature granulocytes 0.3 % 0.00-0 .50 Not Available [facility] (Lab) [address] [place], [address], 03/20/2022 13:49:20 03/20/20 22 03/20/2022 CBC/C OMPLE TE BLD COUNT W/DIF F neutrophils, absolute count 3.37 x10'3 /uL 1.5-8. 0 Not Available [facility] (Lab) [address] [place], [address], 03/20/2022 13:49:20 03/20/20 22 03/20/2022 CBC/C OMPLE TE BLD COUNT W/DIF F lymphocytes, absolute count 2.66 x10'3 /uL 1.07-3 .43 Not Available [facility] (Lab) [address] [place], [address], 03/20/2022 13:49:20 03/20/20 22 03/20/2022 CBC/C OMPLE TE BLD COUNT W/DIF F monocytes, absolute count 0.46 x10'3 /uL 0.29-0 .99 Not Available [facility] (Lab) [address] [place], [address], 03/20/2022 13:49:20 03/20/20 22 03/20/2022 CBC/C OMPLE TE BLD COUNT W/DIF F eosinophils, absolute count 0.12 x10'3 /uL 0.02-0 .53 Not Available [facility] (Lab) [address] [place], [address], 03/20/2022 13:49:20 03/20/20 22 03/20/2022 CBC/C OMPLE TE BLD COUNT W/DIF F basophils, absolute count 0.04 x10'3 /uL 0.01-0 .08 Not Available [facility] (Lab) [address] [place], [address], 03/20/2022 13:49:20 03/20/20 22 03/20/2022 CBC/C OMPLE TE BLD COUNT W/DIF F immature granulocytes ,absolute 0.02 x10'3 /uL 0.00-0 .05 Not Available [facility] (Lab) [address] [place], [address], 03/20/2022 13:49:20 03/20/20 22 03/20/2022 CBC/C OMPLE TE BLD COUNT W/DIF F nucleated red blood cells 0.0 % -0 Not Available [facility] (Lab) [address] [place], [address], 03/20/2022 13:49:20 03/20/20 22 03/20/2022 CBC/C OMPLE TE BLD COUNT W/DIF F NRBC# 0.00 x10'3 /uL Not Available [facility] (Lab) [address] [place], [address], 03/20/2022 13:49:20 06/08/20 22 06/14/2022 CORTI JANETT, A.M. cortisol, A.M. 10.0 mcg/d L normal Refer ence Range 8 a.m. (7-9 a.m.) Speci men: 4.0-2 2.0 Not Available [facility] [address] [place], [address], 06/14/2022 16:19:03 06/08/20 22 06/14/2022 INSUL IN insulin 7.2 uIU/m L normal Refer ence Range < or = 19.6 Risk: Optim al < or = 19.6 Moder ate NA High >19.6 Adult cardi ovasc ular event risk categ ory cut point s (opti mal, moder ate, high) are based on [facility] popul ation data from 11/03 11. This insul in assay shows stron g cross -reac tivit y for some insul in analo gs (lisp ro, aspar t, and glarg ine) and much lower cross -reac tivit y with other s (dete manuel, gluli sine) . Not Available [facility] [address] [place], [address], 06/14/2022 16:19:03 06/08/20 22 06/14/2022 CBC (INCL UDES DIFF/ PLT) white blood cell count 5.1 thous and/u L 3.8-10 .8 normal Not Available [address], [address], 06/14/2022 16:19:02 06/08/20 22 06/14/2022 CBC (INCL UDES DIFF/ PLT) red blood cell count 4.72 robel on/uL 3.80-5 .10 normal Not Available [address], [address], 06/14/2022 16:19:02 06/08/20 22 06/14/2022 CBC (INCL UDES DIFF/ PLT) hemoglobin 14.3 g/dL 11.7-1 5.5 normal Not Available [address], [address], 06/14/2022 16:19:02 06/08/20 22 06/14/2022 CBC (INCL UDES DIFF/ PLT) hematocrit 42.3 % 35.0-4 5.0 normal Not Available [address], [address], 06/14/2022 16:19:02 06/08/20 22 06/14/2022 CBC (INCL UDES DIFF/ PLT) MCV 89.6 fL 80.0-1 00.0 normal Not Available [address], [address], 06/14/2022 16:19:02 06/08/20 22 06/14/2022 CBC (INCL UDES DIFF/ PLT) MCH 30.3 pg 27.0-3 3.0 normal Not Available [address], [address], 06/14/2022 16:19:02 06/08/20 22 06/14/2022 CBC (INCL UDES DIFF/ PLT) MCHC 33.8 g/dL 32.0-3 6.0 normal Not Available [address], [address], 06/14/2022 16:19:02 06/08/20 22 06/14/2022 CBC (INCL UDES DIFF/ PLT) RDW 12.3 % 11.0-1 5.0 normal Not Available [address], [address], 06/14/2022 16:19:02 06/08/20 22 06/14/2022 CBC (INCL UDES DIFF/ PLT) platelet count 238 thous and/u L 140-40 0 normal Not Available [address], [address], 06/14/2022 16:19:02 06/08/20 22 06/14/2022 CBC (INCL UDES DIFF/ PLT) MPV 12.3 fL 7.5-12 .5 normal Not Available [address], [address], 06/14/2022 16:19:02 06/08/20 22 06/14/2022 CBC (INCL UDES DIFF/ PLT) absolute neutrophils 2713 cells /uL 1500-7 800 normal Not Available [address], [address], 06/14/2022 16:19:02 06/08/20 22 06/14/2022 CBC (INCL UDES DIFF/ PLT) absolute lymphocytes 1867 cells /uL 850-39 00 normal Not Available [address], [address], 06/14/2022 16:19:02 06/08/20 22 06/14/2022 CBC (INCL UDES DIFF/ PLT) absolute monocytes 377 cells /uL 200-95 0 normal Not Available [address], [address], 06/14/2022 16:19:02 06/08/20 22 06/14/2022 CBC (INCL UDES DIFF/ PLT) absolute eosinophils 102 cells /uL 15-500 normal Not Available [facility] [address], [address], 06/14/2022 16:19:02 06/08/20 22 06/14/2022 CBC (INCL UDES DIFF/ PLT) absolute basophils 41 cells /uL 0-200 normal Not Available [address], [address], 06/14/2022 16:19:02 06/08/20 22 06/14/2022 CBC (INCL UDES DIFF/ PLT) neutrophils 53.2 % normal Not Available [facility] [address], [address], 06/14/2022 16:19:02 06/08/20 22 06/14/2022 CBC (INCL UDES DIFF/ PLT) lymphocytes 36.6 % normal Not Available [facility] [address], [address], 06/14/2022 16:19:02 06/08/20 22 06/14/2022 CBC (INCL UDES DIFF/ PLT) monocytes 7.4 % normal Not Available [facility] [address], [address], 06/14/2022 16:19:02 06/08/20 22 06/14/2022 CBC (INCL UDES DIFF/ PLT) eosinophils 2.0 % normal Not Available [facility] [address], [address], 06/14/2022 16:19:02 06/08/20 22 06/14/2022 CBC (INCL UDES DIFF/ PLT) basophils 0.8 % normal Not Available [facility] [address], [address], 06/14/2022 16:19:02 06/08/20 22 06/14/2022 T3, TOTAL T3, total 99 NG/dL 76-181 normal Not Available [address], [address], 06/14/2022 16:19:01 06/08/20 22 06/14/2022 T4, FREE T4, free 1.0 NG/dL 0.8-1. 8 normal Not Available [address], [address], 06/14/2022 16:19:00 06/08/20 22 06/14/2022 TSH TSH 6.43 mIU/L 0.40-4 .50 high Not Available [address], [address], 06/14/2022 16:19:00 06/08/20 22 06/14/2022 MAGNE SIUM magnesium 2.2 mg/dL 1.5-2. 5 normal Not Available [address], [address], 06/14/2022 16:18:59 06/08/20 22 06/14/2022 CARDI O IQ(R) VITAM IN D, 25 HYDRO XY vitamin D, 25-oh, total 49.4 NG/mL >29.9 Vitam in D, 25-Hy droxy repor ts crista ntrat ions of two commo n forms , 25-OH D2 and 25-OH D3. 25-OH D3 indic ates both endog enous produ ction and suppl ement ation . 25-OH D2 is an indic ator of exoge nous sourc es, such as diet or suppl ement ation . Thera py is based on measu remen t of Total 25-OH D, with level s <20 ng/mL indic ative of Vitam in D defic iency , while level s betwe en 20 ng/mL and 30 ng/mL sugge st insuf ficie ncy. Optim al level s are >=30 ng/mL . Vitam in-D is fat-s olubl e and there fore inadv erten t or inten sadnra l inges tion of exces sivel y high amoun ts could be toxic . Studi es in child anushka and adult s sugge st blood level s would need to excee d 150 ng/mL befor e there is any crista rn. Maged brown MF, Anaid james NC, Randa off-f errar i FRANCO, et al. Evalu ation , treat ment, and preve ntion of vitam in D defic iency : an Endoc rine Socie ty clini berna pract ice guide line. J Clin Endoc rinol Metab . 2011; 96(7) :1911 -30.T his test is perfo rmed by a Liqui silvana Chrom atogr aphparesh- Eleazar m Mass Spect romet ry (LC-M S/MS) methromina d. This test was devel oped and its perfo rmanc e alban cteri stics deter mined by the [employer], [employer]. It has not been clear ed or appro seamus by the [place]. FDA. The [facility] is regul ated under Clini berna Labor atory Impro vemen t Amend ments (CLIA ) as quali fied to perfo rm high- compl exity testi ng. This test is used for clini berna purpo ses. It shoul d not be regar ded as inves tigat ional or for resea rch. Vitam in D, 25-Hy droxy repor ts crista ntrat ions of two commo n forms , 25-OH D2 and 25-OH D3. 25-OH D3 indic ates both endog enous produ ction and suppl ement ation . 25-OH D2 is an indic ator of exoge nous sourc es, such as diet or suppl ement ation . Thera py is based on measu remen t of Total 25-OH D, with level s <20 ng/mL indic ative of Vitam in D defic iency , while level s betwe en 20 ng/mL and 30 ng/mL sugge st insuf ficie ncy. Optim al level s are > or = 30 ng/mL . Vitam in D is fat-s olubl e and there fore inadv erten t or inten sandra l inges tion of exces sivel y high amoun ts could be toxic . Studi es in child anushka and adult s sugge st blood level s would need to excee d 150 ng/mL befor e there is any crista rn. Maged brown MF, Anaid james NC, Randa off-f errar i FRANCO, et al., Evalu ation , treat ment, and preve ntion of vitam in D defic iency : an Endoc rine Socie ty clini berna pract ice guide line. J Clin. Endoc rinol . Metab . 2011; 96(7) :1911 -30. Not Available [facility] [place] [address] [place], [address], 06/14/2022 16:18:59 06/08/20 22 06/14/2022 CARDI O IQ(R) VITAM IN D, 25 HYDRO XY vitamin D, 25-oh, D3 49.4 NG/mL This test was devel oped and its ace tical perfo rmanc e alban cteri stics have been deter mined by [facility]. It has not been clear ed or appro seamus by the FDA. This assay has been valid ated pursu ant to the CLIA regul ation s and is used for clini berna purpo ses. Not Available [facility] [place] [address] [place], [address], 06/14/2022 16:18:59 06/08/20 22 06/14/2022 CARDI O IQ(R) VITAM IN D, 25 HYDRO XY vitamin D, 25-oh, D2 <1.0 NG/mL low This test was devel oped and its ace tical perfo rmanc e alban cteri stics have been deter mined by [facility]. It has not been clear ed or appro seamus by the FDA. This assay has been valid ated pursu ant to the CLIA regul ation s and is used for clini berna purpo ses. Not Available [facility] [place] [address] [place], [address], 06/14/2022 16:18:59 06/08/20 22 06/14/2022 COMPR EHENS SUSAN METAB OLIC PANEL eGFR 74 mL/mi n/1.7 3m2 > or = 60 normal The eGFR is based on the CKD-E PI 2020 equat ion. To calcu late the new eGFR from a previ ous Creat inine or Cysta tin C resul t, go to https ://rubens meier.romina rosales/niels diego s/ kdoqi /gfr% 5Fcal culat or Not Available [place] [address] [place], [address], 06/14/2022 16:18:58 06/08/20 22 06/14/2022 COMPR EHENS SUSAN METAB OLIC PANEL glucose 100 mg/dL 65-139 normal Non-f astin g refer ence inter rogelio Not Available [address] [place], [address], 06/14/2022 16:18:58 06/08/20 22 06/14/2022 COMPR EHENS SUSAN METAB OLIC PANEL urea nitrogen (BUN) 15 mg/dL 7-25 normal Not Available [address] [place], [address], 06/14/2022 16:18:58 06/08/20 22 06/14/2022 COMPR EHENS SUSAN METAB OLIC PANEL creatinine 0.88 mg/dL 0.50-1 .05 normal Not Available [facility] [address], [address], 06/14/2022 16:18:58 06/08/20 22 06/14/2022 COMPR EHENS SUSAN METAB OLIC PANEL BUN/creatini ne ratio not applic able (calc ) 6-22 Not Available [facility] [place] [place] [address] [place], [address], 06/14/2022 16:18:58 06/08/20 22 06/14/2022 COMPR EHENS SUSAN METAB OLIC PANEL sodium 142 mmol/ L 135-14 6 normal Not Available [address], [address], 06/14/2022 16:18:58 06/08/20 22 06/14/2022 COMPR EHENS SUSAN METAB OLIC PANEL potassium 4.0 mmol/ L 3.5-5. 3 normal Not Available [address], [address], 06/14/2022 16:18:58 06/08/20 22 06/14/2022 COMPR EHENS SUSAN METAB OLIC PANEL chloride 108 mmol/ L 98-110 normal Not Available [address], [address], 06/14/2022 16:18:58 06/08/20 22 06/14/2022 COMPR EHENS SUSAN METAB OLIC PANEL carbon dioxide 24 mmol/ L 20-32 normal Not Available [address], [address], 06/14/2022 16:18:58 06/08/20 22 06/14/2022 COMPR EHENS SUSAN METAB OLIC PANEL calcium 9.4 mg/dL 8.6-10 .4 normal Not Available [address], [address], 06/14/2022 16:18:58 06/08/20 22 06/14/2022 COMPR EHENS SUSAN METAB OLIC PANEL protein, total 6.7 g/dL 6.1-8. 1 normal Not Available [address], [address], 06/14/2022 16:18:58 06/08/20 22 06/14/2022 COMPR EHENS SUSAN METAB OLIC PANEL albumin 4.5 g/dL 3.6-5. 1 normal Not Available [address], [address], 06/14/2022 16:18:58 06/08/20 22 06/14/2022 COMPR EHENS SUSAN METAB OLIC PANEL globulin 2.2 g/dL_ (calc ) 1.9-3. 7 normal Not Available [address], [address], 06/14/2022 16:18:58 06/08/20 22 06/14/2022 COMPR EHENS SUSAN METAB OLIC PANEL albumin/glob ulin ratio 2.0 (calc ) 1.0-2. 5 normal Not Available [address], [address], 06/14/2022 16:18:58 06/08/20 22 06/14/2022 COMPR EHENS SUSAN METAB OLIC PANEL bilirubin, total 0.6 mg/dL 0.2-1. 2 normal Not Available [address], [address], 06/14/2022 16:18:58 06/08/20 22 06/14/2022 COMPR EHENS SUSAN METAB OLIC PANEL alkaline phosphatase 50 U/L 37-153 normal Not Available [address], [address], 06/14/2022 16:18:58 06/08/20 22 06/14/2022 COMPR EHENS SUSAN METAB OLIC PANEL AST 24 U/L 10-35 normal Not Available [address], [address], 06/14/2022 16:18:58 06/08/20 22 06/14/2022 COMPR EHENS SUSAN METAB OLIC PANEL ALT 30 U/L 6-29 high Not Available [address], [address], 06/14/2022 16:18:58 08/28/20 22 08/28/2022 DEXA, axial skele ton No observ ation record ed. [id number] [facility] [address], [place], [address], 01/13/2023 02:58:44 10/04/20 22 10/04/2022 XR, chest , 1 view No observ ation record ed. [id number] [address], [place], [address], 01/13/2023 02:58:44 10/04/20 22 10/04/2022 CT, brain , w/o contr ast No observ ation record ed. [id number] [address], [place], [address], 01/13/2023 02:58:44 06/11/20 23 06/11/2023 MAMMO , scree belgica, tomos ynthe sis, bilat eral, w/ CAD No observ ation record ed. [email or web address] [facility] [address], [place], [address], 08/09/2023 15:33:11 Result Notes None recorded. Problems Name Problem SNOMED Code Status Onset Date Resolution Date Notes Provider Name and Address Organization Details Recorded Time Hand pain 39265701 Active Not Available [facility] 3 02:50:46 Hyperlipidemi a 09261124 Active Not Available [facility] 3 02:50:46 Vitamin D deficiency 69886032 Active 2016 Not Available [facility] 3 02:50:46 Hypothyroidis m 40285522 Active 2019 Not Available [facility] 3 02:50:46 Loss of hair 140286719 Active 2021 Not Available [facility] 3 02:50:46 Fatigue 39708703 Active 2021 Not Available [facility] 3 02:50:46 Anxiety 00597923 Active 2022 Jolene Marks RN null, [place] - [facility] 3 17:52:25 Chest pain 46244889 Active 2022 Maikel Larson, RMJamie null, [place] - [facility] [employer] [facility] 3 15:50:55 Problem Notes None recorded. Procedures Surgical History Date Name Laterality Status Provider Name and Address Organization Details Recorded Time section completed Not Available Formerly [facility], [facility] 01/13/2023 02:44:52 Imaging Results None recorded. Procedure Notes None recorded. Medical Equipment None Reported. Allergies Allergen ID Allergen Name Allergen Category Reaction Reaction Severity Criticality Documentation Date Start Date Code Code System Note Provider Name and Address Organization Details Recorded Time 4461 Substance with sulfonami de structure and antibacte rial mechanism of action (substanc e) medicatio n Not available Not available Not available 01/13/2023 03536 8003 SNOMED Not Available [facility], [facility] 3 02:58:12 4462 Product containin g penicilli n (product) medicatio n Not available Not available Not available 01/13/2023 74650 8001 SNOMED Not Available [facility], [facility] 3 02:58:12 Medications Name Sig Start Date Stop Date Status Note LastModified by Organization Details LastModified Time atorvasta tin 20 mg tablet Take 1 tablet every day by oral route. active Not Available Not Available No t Available atorvasta tin 10 mg tablet TAKE 1 TABLET DAILY-- NEEDS APPT BEFORE NEXT REFILL 08/03 completed Not Available Not Available Not Available azithromy tony 250 mg tablet TAKE 2 TABLETS (500 MG) BY ORAL ROUTE ONCE DAILY FOR 1 DAY THEN 1 TABLET (250 MG) BY ORAL ROUTE ONCE DAILY FOR 4 DAYS 12/29 completed Not Available Not Available Not Available Elidel 1 % topical cream 11/18 completed Not Available Not Available Not Available fluoxetin e 10 mg tablet TAKE 1 TABLET BY MOUTH EVERY DAY 08/03 completed changed to Zoloft per Dr Dong Not Available Not Available Not Available simvastat in 10 mg tablet TAKE 1 TABLET BY MOUTH EVERY DAY 11/18 completed Not Available Not Available Not Available clobetaso l 0.05 % topical cream 08/29 completed Not Available Not Available Not Available Klor-Con 20 mEq oral packet 04/11 completed Not Available Not Available Not Available valacyclo vir 500 mg tablet TAKE 1 TABLET BY MOUTH DAILY 08/03 completed Not Available Not Available Not Available triamcino lone acetonide 0.1 % topical cream appy to rash nightly active Not Available Not Available No t Available amoxicill in 500 mg tablet 07/06 completed Not Available Not Available Not Available amoxicill in 875 mg tablet TK 1 T PO Q 12 HOURS TAT 11/24 completed Not Available Not Available Not Available Synthroid 25 mcg tablet TAKE 1 TABLET BY MOUTH EVERY DAY 08/03 completed Not Available Not Available Not Available pantopraz ole 40 mg tablet,de layed release TAKE 1 TABLET BY MOUTH EVERY DAY active Not Available Not Available No t Available clotrimaz ole-betam ethasone 1 %-0.05 % topical cream APPLY TO THE AFFECTED AREA THREE TIMES DAILY active Not Available Not Available No t Available prednison e 50 mg tablet TK 1 T PO UTD 11/24 completed Not Available Not Available Not Available Synthroid 88 mcg tablet Take 1 tablet(s ) every day by oral route. active Not Available Not Available No t Available fluoxetin e 10 mg capsule 08/03 completed Not Available Not Available Not Available Synthroid 50 mcg tablet 1/2 tablet daily 11/18 completed Not Available Not Available Not Available diclofena c sodium 75 mg tablet,de layed release Take 1 tablet twice a day by oral route with meals. active Not Available Not Available No t Available monteluka st 10 mg tablet TK 1 T PO QD 04/11 completed Not Available Not Available Not Available clobetaso l 0.05 % topical ointment 11/27 completed Not Available Not Available Not Available methylpre dnisolone 4 mg tablets in a dose pack use as directed 12/29 completed Not Available Not Available Not Available Vitamin D2 1,250 mcg (50,000 unit) capsule Take 1 capsule every week by oral route. 11/18 completed Not Available Not Available Not Available Zoloft 25 mg tablet Take 1 tablet every day by oral route. 2022 active Not Available Not Available Not Avai lable ondansetr on 4 mg disintegr ating tablet DISSOLVE 1 TABLET ON THE TONGUE EVERY 8 HOURS NEEDED FOR NAUSEA OR VOMITING 08/03 completed Not Available Not Available Not Available metformin ER 500 mg tablet,ex tended release 24 hr Take 1 tablet every day by oral route. active Not Available Not Available No t Available spironola ctone 50 mg tablet Take 1 tablet every day by oral route. active Not Available Not Available No t Available Lotemax 0.5 % eye drops,[facility] 06/26 completed Not Available Not Available Not Available tobramyci n 0.3 %-dexamet hasone 0.1 % eye drops,[facility] 07/06 completed Not Available Not Available Not Available neomycin 3.5 mg/g-poly myxin B 10,000 unit/g-de xameth 0.1 % eye oint active Not Available Not Available Not Available topiramat e 50 mg tablet Take 1 tablet twice a day by oral route. 11/18 completed Not Available Not Available Not Available nitrofura ntoin monohydra te/macroc rystals 100 mg capsule 03/19 completed Not Available Not Available Not Available melatonin 04/11 completed Not Available Not Available Not Available Fish Oil 2014 active Not Available Not Available Not Avai lable Vitamin D3 active Not Available Not Available Not Available multivita min 11/27 completed Not Available Not Available Not Available clobetaso l-emollie nt 0.05 % topical foam 11/18 completed Not Available Not Available Not Available diclofena c 1 % topical gel active Not Available Not Available Not Available B12 active Not Available Not Availa ble Not Available Suprep Bowel Prep Kit 17.5 gram-3.13 gram-1.6 gram oral solution 06/26 completed Not Available Not Available Not Available Imvexxy Maintenan ce Pack 10 mcg vaginal insert active Not Available Not Available Not Available Wegovy 0.25 mg/0.5 mL subcutane ous pen injector INJECT 0.25 MG UNDER THE SKIN ONCE WEEKLY 08/03 completed Not Available Not Available Not Available Vitals Date Recorded Body mass index (BMI) Body height Heart rate Body temperature Body weight Systolic And Diastolic Provider Name and Address Organization Details Last Updated DateTime 3 28.1 kg/m2 165.1 cm 59 /min 97.4 [degF] 63713.1 1 g 114/80 mm[Hg] Not Available [facility] 3 02:48:28 Date Recorded Body mass index (BMI) Body height Heart rate Body temperature Body weight Systolic And Diastolic Provider Name and Address Organization Details Last Updated DateTime 2 26.6 kg/m2 165.1 cm 78 /min 97.6 [degF] 48197.7 8 g 122/68 mm[Hg] Not Available [facility] 3 02:48:28 Date Recorded Body height Body mass index (BMI) Body weight Body temperature Heart rate Systolic And Diastolic Provider Name and Address Organization Details Last Updated DateTime 3 165.1 cm 27.3 kg/m2 59077.1 5 g 98.4 [degF] 59 /min 120/70 mm[Hg] Jolene thompson RN [place] - [facility] 3 11:54:20 Date Recorded Body mass index (BMI) Body height Heart rate Body temperature Body weight Systolic And Diastolic Provider Name and Address Organization Details Last Updated DateTime 1 26.5 kg/m2 165.1 cm 55 /min 96.9 [degF] 25132.1 9 g 110/60 mm[Hg] Not Available [facility] 3 02:48:27 Date Recorded Body mass index (BMI) Body height Heart rate Body temperature Body weight Systolic And Diastolic Provider Name and Address Organization Details Last Updated DateTime 2 27.8 kg/m2 165.1 cm 52 /min 97.4 [degF] 26425.9 3 g 120/80 mm[Hg] Not Available [facility] 3 02:48:28 Social History Question Answer Notes LastModified by Organizat ion Details LastModified Time Tobacco Smoking Status Never Smoker Not Available [facility] 01/13/2023 02:41:04 Do You Have An Advance Directive? No [id number] Information not available 01/13/2023 What Is Your Level Of Caffeine Consumption? Occasional MIGRATION.[id number] 9976 Information not available 01/13/2023 How Much Tobacco Do You Chew? None MIGRATION.801973 1796 Information not available 01/13/2023 In The 14 Days Before Symptom Onset, Have You Had Close Contact With A Laboratory-confir med COVID-19 While That Case Was Ill? No MIGRATION.[id number] 3582 Information not available 01/13/2023 In The 14 Days Before Symptom Onset, Have You Had Close Contact With A Person Who Is Under Investigation For COVID-19 While That Person Was Ill? No MIGRATION.886212 3085 Information not available 01/13/2023 What Type Of Diet Are You Following? REGULAR MIGRATION.723278 9680 Information not available 01/13/2023 Which Illicit Or Recreational Drugs Have You Used? None MIGRATION.430841 0955 Information not available 01/13/2023 What Is The Highest Grade Or Level Of School You Have Completed Or The Highest Degree You Have Received? CK93130-7 MIGRATION.396955 3834 Information not available 01/13/2023 Have There Been Any Changes To Your Family Or Social Situation? No MIGRATION.553372 3563 Information not available 01/13/2023 What Is The Fluoride Status Of Your Home? Unknown MIGRATION.523046 8380 Information not available 01/13/2023 Are There Any Guns Present In Your Home? No MIGRATION.242116 1587 Information not available 01/13/2023 Do You Use Insect Repellent Routinely? No MIGRATION.226142 1741 Information not available 01/13/2023 Where Do You Live? [facility] MIGRATION.104538 4248 Information not available 01/13/2023 Do You Have A Medical Power Of Store Lead? No MIGRATION.203454 1452 Information not available 01/13/2023 What Was The Date Of Your Most Recent Tobacco Screening? 08/03/2023 Information not available 08/03/2023 Have You Ever Been Counseled For Unhealthy Alcohol Use? No MIGRATION.486082 2199 Information not available 01/13/2023 Do You Have Any Pets? No MIGRATION.181300 3286 Information not available 01/13/2023 What Is Your Relationship Status? MIGRATION.425610 0074 Information not available 01/13/2023 Do You Use Your Seat Belt Or Car Seat Routinely? Yes MIGRATION.831132 6426 Information not available 01/13/2023 Do You Have Smoke And Carbon Monoxide Detectors In Your Home? Yes MIGRATION.466515 0467 Information not available 01/13/2023 Are You Passively Exposed To Smoke? No MIGRATION.644130 0491 Information not available 01/13/2023 Are There Any Smokers In Your House? No MIGRATION.318768 1243 Information not available 01/13/2023 How Much Tobacco Do You Smoke? No MIGRATION.421369 8470 Information not available 01/13/2023 What Types Of Sporting Activities Do You Participate In? None MIGRATION.187009 0503 Information not available 01/13/2023 Do You Use Sunscreen Routinely? Yes MIGRATION.988719 2645 Information not available 01/13/2023 Has Tobacco Cessation Counseling Been Provided? No MIGRATION.440146 4684 Information not available 01/13/2023 How Many Years Have You Smoked Tobacco? 0 MIGRATION.666460 4566 Information not available 01/13/2023 Have You Recently Traveled Abroad? No MIGRATION.032056 5686 Information not available 01/13/2023 Do You Have Any Dietary Restrictions? No MIGRATION.086796 6458 Information not available 01/13/2023 Sex: Female Functional Status Question Answer Note LastModified by [employer] Details LastModified Time Do you use any illicit or recreational drugs? No MIGRATION.466109 6100 Information not available 01/13/2023 Do you or have you ever used any other forms of tobacco or nicotine? No MIGRATION.775232 9346 Information not available 01/13/2023 What is your level of alcohol consumption? Occasional MIGRATION.904747 5044 Information not available 01/13/2023 Do you or have you ever used smokeless tobacco? Never used smokeless tobacco MIGRATION.427113 6826 Information not available 01/13/2023 Are you currently employed? 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 Never used electronic cigarettes MIGRATION.987318 3004 Information not available 01/13/2023 What is your exercise level? Heavy MIGRATION.085649 6400 Information not available 01/13/2023 Mental Status Question Answer Note LastModified by Organizat ion Details LastModified Time Do you feel stressed (tense, restless, nervous, or anxious, or unable to sleep at night)? [id number] MIGRATION.[id number] 6 Information not available 01/13/2023 Family History Relationship Description Onset Age of this Age Resolved Age Notes LastModified by Organization Details LastModified Time Mother Malignant neoplasm of breast MIGRATION.610 [id number] Not available 01/13/2023 02:44:56 Mother Myocardial infarction MIGRATION.731 [id number] Not available 01/13/2023 02:44:56 Mother Arthritis MIGRATION.076 [id number] Not available 01/13/2023 02:44:56 Mother Hypertensive disorder MIGRATION.960 [id number] Not available 01/13/2023 02:44:56 Father Myocardial infarction 48 AGE: 48 MIGRATION.251 [id number] Not available 01/13/2023 02:44:56 Maternal Grandfather Parkinson's disease MIGRATION.090 [id number] Not available 01/13/2023 02:44:56 Unspecified Relation Embolism MIGRATION.566 [id number] Not available 01/13/2023 02:44:56 Unspecified Relation Heart disease MIGRATION.642 [id number] Not available 01/13/2023 02:44:56 Sister Malignant neoplasm of stomach MIGRATION.326 [id number] Not available 01/13/2023 02:44:56 Sister Family history of malignant neoplasm MIGRATION.717 [id number] Not available 01/13/2023 02:44:57 Medical History Condition Response NERVE DISEASE N BLINDNESS N RHEUMATIC FEVER N KIDNEY STONES N BLADDER PROBLEMS N OTHER # 1 N POLIO N LUNG DISEASE/DISORDER N RADIATION / CHEMOTHERAPY N COPD N Other # 2 N BLOOD DISEASES N SURGERY N EAR OR HEARING PROBLEMS N MUMPS N DEPRESSION (INCLUDING POST ) N BOWEL PROBLEMS N STROKE/TIA N ULCERS N BENIGN PROSTATIC HYPERPLASIA N MEASLES N MYOCARDIAL INFARCTION N OBESITY N GERD/NAUSEA N ANEURYSM N URINARY/BLADDER/KIDNEY PROBLEMS N INPATIENT PSYCH CARE N CORONARY ARTERY DISEASE (CAD) N ADDICTION CONCERNS N Impotence N ENDOMETRIOSIS N USE OF BLOOD THINNERS N SKIN PROBLEMS Y GASTROINTESTINAL DISORDER N PERIPHERAL VASCULAR DISEASE N MUSCLE,JOINT OR BONE PROBLEMS N GASTROINTESTINAL BLEEDING N BLOOD CLOTS N ASTHMA N CATARACTS N ERECTILE DYSFUNCTION N VARICOSITIES N GI PROBLEMS N Low Testosterone N INFERTILITY N AIDS/HIV N LIVER DISEASE N MALE HYPOGONADISM N HYPERTENSION N Deficiency Y ANXIETY DISORDER N BLOOD TRANSFUSION N ANEMIA/BLOOD DISORDER N CHRONIC EAR INFECTIONS N BRONCHITIS N TUBERCULOSIS N GLAUCOMA N FOOT PROBLEM N DIVERTICULITIS N SLEEP APNEA N CHICKENPOX N INFECTIOUS DISEASE N PROSTATE N HEART ARRHYTHMIA N INSOMNIA N HIGH CHOLESTEROL / HYPERLIPIDEMIA Y EYE PROBLEMS N HYPERTHYROIDISM N NEUROLOGICAL PROBLEMS N EDEMA N CHRONIC PAIN SYNDROME Y HYPOTHYROIDISM Y CAROTID BLOCKAGE N CONSTIPATION N BACK / NECK PROBLEMS N HAVE YOU BEEN HOSPITALIZED OR SEEN IN [facility] IN THE PAST YEAR ? N ATHEROSCLEROSIS N BREAST PROBLEMS N DIALYSIS N ECZEMA N OSTEOPOROSIS N ARTHRITIS N NO SIGNIFICANT PAST MEDICAL HISTORY N APPENDICITIS N DIABETES, TYPE N BAD TEETH N ENT N HEARTBURN / REFLUX N AUTISM SPECTRUM DISORDER (ASD) N HEPATITIS / LIVER DISEASE N PULMONARY DISEASE N GOUT N SLEEP DISORDER N ALZHEIMER'S DISEASE N Brain Problems N DEMENTIA N HERPES N SEIZURES/EPILEPSY N HEADACHES/MIGRAINES Y VASCULAR DISEASE N PACEMAKER N Blood Disorder N DIZZINESS N HEART DISEASE/HEART PROBLEMS N KIDNEY DISEASE N MULTIPLE SCLEROSIS N CANCER: SPECIFY N CARDIAC ARRHYTHMIA Y ANESTHESIA COMPLICATIONS N ATRIAL FIBRILLATION N Gall Stones N PULMONARY EMBOLISM N AUTOIMMUNE DISEASE N Gynecological History Statement/Question Response Date of Last Mammogram Obstetrics History GPAL:G 0 P 0 0 0 0 Past Encounters Encounter ID Performer Location Encounter Start Date Encounter Closed Date Diagnosis/Indication Diagnosis SNOMED-CT Code Diagnosis ICD10 Code Diagnosis IMO Codes Diagnosis Note [id number] Esther Dong MD [facility] Internal Med Eunice warren [address] [place] [address] [place] [address] 01/28/2021 00:00:00 01/28/2021 21:44:33 [id number] Esther Dong MD [facility] Internal Med [facility] [address] [place], [place] [address] [address] 08/29/2021 00:00:00 08/29/2021 16:05:39 [id number] Esther Dong MD [facility] Internal Med Eunice warren [address] [place] [address] [place] [address] 03/19/2022 00:00:00 03/19/2022 22:58:23 [id number] Esther Dong MD [facility] Internal Med [facility] [address] [place] [address] 10/16/2022 00:00:00 12/06/2022 16:11:46 [id number] Esther Dong MD [facility] Internal Med [facility] [address] [place] [address] 11/27/2022 00:00:00 11/27/2022 15:29:07 [id number] Esther Dong MD [facility] Internal Med Eunice warren [address] [place] [address] [place] [address] 08/03/2023 11:14:49 08/03/2023 12:22:18 Hypothyroidism 17836923 E03.9 Hyperlipidemia 20228142 E78.5 Anxiety 68288123 F41.9 Health Concerns Section Related Observation LastModified by Organization Detai ls LastModified Time None Recorded Concern Status LastModified by Organization Details LastModified Time None Recorded Advance Directives Directive N: Payers Insurance Date Sequence Insurance Name Policy Number Policy Potter Covered Member ID Potter Member ID Guarantor Name 08/09/2023 1 [facility] [id number] Nima Andrew Pedro [id number] Brionna Buchanan Notes Date Note Type Note Provider Name and Address Organization Details Recorded Time 08/03/2023 text/html Hypothyroid energy level fair hyperlipidemia atorvastatin no side effects anxiety doing well on Zoloft palpitations intermittent but no Esther Dong MD [address], [facility] [address], [place], [address], [place] [employer] 08/08/2023 21:28:40 OBGyn Episode No OBEpisode recorded.
== END 2025-08-29 12:51 | disposition home or self-care (01) ==
LOC: CHSIMG 12:51
PROVIDERS: PCP Nurse Practitioner Family; Visit Provider Nurse Practitioner Family
DX: Z12.31 Encounter for screening mammogram for malignant neoplasm of breast (principal); R92.8 Other abnormal and inconclusive findings on diagnostic imaging of breast
CPT/HCPCS: 77063; 77067

== ENCOUNTER 2025-10-01 09:03 | Outpatient (CLI) | payer BC, SELFPAY ==
--- NOTE | ~2025-10-01 | MMUS_ITS ---
EXAMINATION: MM diagnostic christine LT w canelo, US breast LT limited INDICATION: 65-year old female; BI-RADS 0, callback to evaluate Left breast focal asymmetry. COMPARISON: 08/29/2025 through 10/16/2021 TECHNIQUE: Digital breast tomosynthesis True lateral and spot compression CC and MLO views of the LEFT breast were obtained with computer-aided detection to assist in interpretation of the study. FINDINGS: There are scattered areas of fibroglandular density. The focal asymmetry of concern in the lower outer left breast persists as a superficial circumscribed mass. Ultrasound was performed for further evaluation. LEFT BREAST ULTRASOUND FINDINGS: Targeted evaluation of the area of concern was completed. There is a 0.7 x 0.6 x 0.3 cm circumscribed parallel orientated hypoechoic mass at 5:00 location 3 cm from the nipple in the LEFT breast that correlate to the area of Mammographic finding. There is a 0.5 cm superficial hyperechoic mass at 5:00, 5 cm from the nipple. This finding represent an area of fat necrosis/lipoma. IMPRESSION: Probable Benign LEFT breast mass at 5:00, 3 cm FN. Short-term follow-up recommended. Benign hyperechoic mass at 5:00, 5 cm FN most likely represent a small lipoma/area of fat necrosis RECOMMENDATION: 6 month follow-up diagnostic LEFT mammogram and LEFT breast ultrasound. BI-RADS 3, PROBABLY BENIGN Reviewed, dictated and finalized at location C. ANGE CONSULTANT IMPRESSION: Probable Benign LEFT breast mass at 5:00, 3 cm FN. Short-term follow-up recomme nded. Benign hyperechoic mass at 5:00, 5 cm FN most likely represent a small lipoma/a jeimy of fat necrosis RECOMMENDATION: 6 month follow-up diagnostic LEFT mammogram and LEFT breast ultrasound. BI-RADS 3, PROBABLY BENIGN
== END 2025-10-01 09:04 | disposition home or self-care (01) ==
LOC: CHSIMG 09:04
PROVIDERS: PCP Nurse Practitioner Family; Visit Provider Nurse Practitioner Family
DX: R92.8 Other abnormal and inconclusive findings on diagnostic imaging of breast (principal)
CPT/HCPCS: 76642; 77061; 77065; G0279